=== PATIENT | male | born 1950 | race African-American/Black ===

== ENCOUNTER 2022-06-21 20:07 | Emergency (ER) | payer OTHER ==
--- NOTE | 2022-06-21 21:44 | RAD REPORT ---
EXAM DESCRIPTION: Tory Single View06/21/2022 9:39 pm CLINICAL HISTORY: Chest pain COMPARISON: 2010 FINDINGS: The lungs appear clear of acute infiltrate. The heart is normal size IMPRESSION: No acute abnormalities displayed
[2022-06-21 21:52] LABS: Absolute Lymphocytes (CBC) 1.2 K/uL (0.7-4.9); Lymphocytes % 15.8 % (15.3-44.8); MCV 88.2 fL (80-100); MPV 8.8 fL (7.6-11.3); RBC Red Blood Cell Count 4.99 M/uL (4.33-5.43)
[2022-06-21 22:13] LABS: Troponin High Sensitivity 6.1 pg/mL (<58.9)
--- NOTE | 2022-06-21 22:17 | EDPHYS ---
Physician Documentation [facility] Name: Dax Steven Sr Age: 72 yrs Sex: Male : 1950 Arrival Date: 06/21/2022 Time: 20:11 Bed 6 Private MD: ED Physician Tex Clark HPI: 06/21 20:30 This 72 yrs old Black Male presents to ER via Unassigned with complaints of chest pain. rn 20:30 The patient or guardian reports chest pain that is located primarily in the anterior rn chest wall, right. Onset: yesterday. The pain does not radiate. Associated signs and symptoms: Pertinent positives: None. Pertinent negatives: abdominal pain, cough, diaphoresis, dizziness, headache, lower extremity swelling, palpitations, recent travel, shortness of breath, syncope, vomiting. The chest pain is described as aching. Duration: The patient or guardian reports multiple episodes, that are intermittent. Modifying factors: The symptoms are alleviated by nothing. the symptoms are aggravated by movement, palpation of area. Severity of pain: At its worst the pain was mild in the emergency department the pain has resolved. The patient has not experienced similar symptoms in the past. The patient has not recently seen a physician. Pt reports right sided chest pain, intermittent since yesterday, worse with palpation and positioning/turning. No fever/cough/sob/abd pain/hemoptysis. No trauma. No vomiting/diarrhea. Does not feel ill. Reports "not really painful", enough to just notice it, and lasts for a second or so. Walks daily without chest pain, no chest pain with exertion.. Historical: - Allergies: 06/22 00:13 No Known Allergies; kd3 - Immunization history:: Adult Immunizations unknown. - Family history:: not pertinent. - Social history:: Smoking status: unknown. - Hospitalizations: : No recent hospitalization is reported. ROS: 06/21 20:30 Constitutional: Negative for fever, chills, and weight loss, Eyes: Negative for injury, rn pain, redness, and discharge, Neck: Negative for injury, pain, and swelling, Cardiovascular: Negative for palpitations, and edema, Respiratory: Negative for shortness of breath, cough, wheezing, and pleuritic chest pain, Abdomen/GI: Negative for abdominal pain, nausea, vomiting, diarrhea, and constipation, Back: Negative for injury and pain, : Negative for injury, bleeding, discharge, and swelling, MS/Extremity: Negative for injury and deformity, Skin: Negative for injury, rash, and discoloration, Neuro: Negative for headache, weakness, numbness, tingling, and seizure. Exam: 20:30 Constitutional: This is a well developed, well nourished patient who is awake, alert, rn and in no acute distress. Ambulatory to room without difficulty or assistance. Head/Face: Normocephalic, atraumatic. Cardiovascular: Regular rate and rhythm. No pulse deficits. Respiratory: No increased work of breathing, no retractions or nasal flaring. Abdomen/GI: Soft, non-tender Skin: Warm, dry MS/ Extremity: Pulses equal, no cyanosis. Neuro: Awake and alert, GCS 15 21:17 ECG was reviewed by the Attending Physician. rn Vital Signs: 20:34 BP 142 / 77; Pulse 96; Resp 18; Temp 98.1(TE); Pulse Ox 97% on R/A; Weight 98.88 kg; kl Height 6 ft. 2 in. (187.96 cm); Pain 3/10; 21:50 BP 132 / 79; Pulse 85; Resp 23 S; Pulse Ox 96% on R/A; as6 22:45 BP 134 / 90; Pulse 84; Resp 16; Pulse Ox 95% on R/A; em6 06/22 00:13 Pulse 78; Resp 16; Pulse Ox 95% on R/A; kd3 06/21 20:34 Body Mass Index 27.99 (98.88 kg, 187.96 cm) MDM: 06/21 20:14 Patient medically screened. rn 22:14 Differential diagnosis: acute myocardial infarction, acute pericarditis, anxiety, chest rn wall pain, costochondritis, esophagitis, pleurisy, pneumothorax, chest wall pain, muscular pain. Data reviewed: vital signs, nurses notes, lab test result(s), EKG, radiologic studies, plain films, and as a result, I will discharge patient. Counseling: I had a detailed discussion with the patient and/or guardian regarding: the historical points, exam findings, and any diagnostic results supporting the discharge/admit diagnosis, lab results, radiology results, the need for outpatient follow up, to return to the emergency department if symptoms worsen or persist or if there are any questions or concerns that arise at home. Special discussion: Based on the patient's history, exam, and Dx evaluation, there is no indication for emergent intervention or inpatient Tx. It is understood by the patient/guardian that if the Sx's persist or worsen they need to return immediately for re-evaluation. I discussed with the patient/guardian in detail that at this point there is no indication for admission to the hospital. It is understood, however, that if the symptoms persist or worsen the patient needs to return immediately for re-evaluation. Based on the history and exam findings, there is no indication for further emergent testing or inpatient evaluation. I discussed with the patient/guardian the need to see the kiln cleaner for further evaluation of the symptoms. I discussed with the patient/guardian the need to see the primary care provider for further evaluation of the symptoms. ED course: No acute findings in blood or CXR. NOrmal ECG. Chest pain worse with twisting and palpation, only for a second, normal trop. No oxygen requirement. Will dc home with return precautions. . 22:16 ED course: Recommend cardiology f/u for stress test. . rn 23:19 ED course: CT PE neg. Will dc home with recommendation to f/u with cardiology and pcp. rn Return precautions given as well. . 06/21 20:22 Order name: Basic Metabolic Panel; Complete Time: 22:13 rn 06/21 20:22 Order name: CBC with Diff; Complete Time: 21:53 rn 06/21 20:22 Order name: NT PRO-BNP; Complete Time: 22:13 rn 06/21 20:22 Order name: Troponin HS; Complete Time: 22:13 rn 06/21 20:22 Order name: XRAY Chest (1 view); Complete Time: 21:49 rn 06/21 22:20 Order name: CT Chest For PE Angio rn 06/21 20:22 Order name: EKG; Complete Time: 20:42 rn 06/21 20:22 Order name: Cardiac monitoring; Complete Time: 21:46 rn 06/21 20:22 Order name: EKG - Nurse/Tech; Complete Time: 21:46 rn 06/21 20:22 Order name: IV Saline Lock; Complete Time: 21:46 rn 06/21 20:22 Order name: Labs collected and sent; Complete Time: 21:46 rn 06/21 22:36 Order name: Chest For Pe Angio; Complete Time: 23:18 EDMS 06/21 20:22 Order name: O2 Per Protocol; Complete Time: :46 rn 06/21 20:22 Order name: O2 Sat Monitoring; Complete Time: 21:46 rn EC:17 Rate is 95 beats/min. Rhythm is regular. QRS [place] is Normal. IN interval is normal. QRS rn interval is normal. QT interval is normal. No Q waves. T waves are Normal. No ST changes noted. Clinical impression: Normal ECG. Interpreted by me. Reviewed by me. Administered Medications: 23:29 Drug: NS 0.9% 500 ml Route: IV; Rate: bolus; Site: right antecubital; em6 06/22 00:14 Follow up: IV Status: Completed infusion; IV Intake: 500ml kd3 06/21 23:29 Drug: Potassium Chloride 40 mEq Route: PO; em6 06/22 00:14 Follow up: Response: No adverse reaction kd3 Disposition Summary: 06/21/22 23:20 Discharge Ordered Location: Home(06/21/22 23:20) rn Problem: new(06/21/22 23:20) rn Symptoms: have improved(06/21/22 23:20) rn Condition: Stable(06/21/22 23:20) rn Diagnosis - Chest pain, unspecified(06/21/22 23:20) rn - Hypokalemia(06/21/22 23:20) rn - Dehydration(06/21/22 23:20) rn Followup: rn - With: Private Physician - When: As needed - Reason: Recheck today's complaints, Re-evaluation by your physician Discharge Instructions: - Discharge Summary Sheet rn - Nonspecific Chest Pain, Adult rn - Dehydration, Adult rn - Hypokalemia rn Forms: - Medication Reconciliation Form rn - Thank You Letter rn - Antibiotic broomcorn scraper - Prescription Opioid Use rn Signatures: Dispatcher [employer] EDOH Tex Clark MD MD rn Doucette, Kyli, RN RN [email or web address] Lolis Paulino, RN RN em6 Corrections: (The following items were deleted from the chart) 06/21 22:19 22:16 Home rn rn 22:19 22:16 new rn rn 22:19 22:16 have improved rn rn 22:19 22:16 Stable rn rn 22:19 22:16 Chest pain, unspecified rn rn : 22:16 Dehydration rn rn : 22:16 Hypokalemia rn rn
--- NOTE | 2022-06-21 22:17 | ER ---
Nurse's Notes [facility] Name: Dax Steven Sr Age: 72 yrs Sex: Male : 1950 Arrival Date: 06/21/2022 Time: 20:11 Bed 6 Private MD: Diagnosis: Chest pain, unspecified;Hypokalemia;Dehydration Presentation: 06/21 20:34 Chief complaint: Patient states: chest discomfort when turning since yesterday. Ebola kl Screen: Patient negative for fever greater than or equal to 101.5 degrees Fahrenheit, and additional compatible Ebola Virus Disease symptoms. Initial Sepsis Screen: Does the patient meet any 2 criteria? No. Patient's initial sepsis screen is negative. Does the patient have a suspected source of infection? No. Patient's initial sepsis screen is negative. Risk Assessment: Do you want to hurt yourself or someone else? Patient reports no desire to harm self or others. Onset of symptoms was June 20, 2022. 20:34 Method Of Arrival: Ambulatory kl 20:34 Acuity: VA 3 kl 20:36 Note pt denies pain at time of triage. kl 23:33 Coronavirus screen: At this time, the client does not indicate any symptoms associated em6 with coronavirus-19. Triage Assessment: 20:36 General: Appears in no apparent distress. comfortable, Behavior is calm, cooperative. kl Pain: Denies pain. Cardiovascular: No deficits noted. Historical: - Allergies: 06/22 00:13 No Known Allergies; kd3 - Immunization history:: Adult Immunizations unknown. - Family history:: not pertinent. - Social history:: Smoking status: unknown. - Hospitalizations: : No recent hospitalization is reported. Screenin/18 21:51 Abuse screen: Denies threats or abuse. Denies injuries from another. Nutritional as6 screening: No deficits noted. Tuberculosis screening: No symptoms or risk factors identified. Fall Risk None identified. Assessment: 21:47 General: Appears in no apparent distress. Behavior is calm, cooperative. Pain: as6 Complains of pain in chest Aggravated by increased activity. Neuro: Level of Consciousness is awake, alert. Cardiovascular: Reports chest pain, Denies shortness of breath. Respiratory: Respiratory effort is even, unlabored. 23:30 Reassessment: waiting for 500 mL of fluids to finish to discharge patient. em6 23:31 Reassessment:. Neuro: Level of Consciousness is awake, alert, obeys commands, Oriented em6 to person, place, time, situation. Respiratory: Airway is patent Respiratory effort is even, unlabored, Respiratory pattern is regular, symmetrical. Vital Signs: 20:34 BP 142 / 77; Pulse 96; Resp 18; Temp 98.1(TE); Pulse Ox 97% on R/A; Weight 98.88 kg; Height 6 ft. 2 in. (187.96 cm); Pain 3/10; 21:50 BP 132 / 79; Pulse 85; Resp 23 S; Pulse Ox 96% on R/A; as6 22:45 BP 134 / 90; Pulse 84; Resp 16; Pulse Ox 95% on R/A; em6 06/22 00:13 Pulse 78; Resp 16; Pulse Ox 95% on R/A; kd3 06/21 20:34 Body Mass Index 27.99 (98.88 kg, 187.96 cm) ED Course: 06/21 20:11 Patient arrived in ED. jj6 20:14 Tex Clark MD is Attending Physician. rn 20:36 Triage completed. 20:52 Kael Whitney, CAROL is Primary Nurse. as6 21:29 Arm band placed on. as6 21:41 XRAY Chest (1 view) In Process Unspecified. EDMS 21:46 Basic Metabolic Panel Sent. as6 21:46 CBC with Diff Sent. as6 21:46 NT PRO-BNP Sent. as6 21:46 Troponin HS Sent. as6 21:46 Inserted saline lock: 20 gauge in right antecubital area, using aseptic technique. as6 Blood collected. 21:51 Placed in gown. Bed in low position. Call light in reach. Side rails up X2. as6 23:01 Chest For Pe Angio In Process Unspecified. EDMS 10 00:13 No provider procedures requiring assistance completed. IV discontinued, intact, kd3 bleeding controlled, No redness/swelling at site. Pressure dressing applied. Administered Medications: 06/21 23:29 Drug: NS 0.9% 500 ml Route: IV; Rate: bolus; Site: right antecubital; em6 06/22 00:14 Follow up: IV Status: Completed infusion; IV Intake: 500ml kd3 06/21 23:29 Drug: Potassium Chloride 40 mEq Route: PO; em6 06/22 00:14 Follow up: Response: No adverse reaction kd3 Medication: 00:13 VIS not applicable for this client. kd3 Intake: 00:14 IV: 500ml; Total: 500ml. kd3 Outcome: 06/21 22:16 Discharge ordered by . rn 23:20 Discharge ordered by MD. rn 06/22 00:13 Discharged to home ambulatory, with family. kd3 Condition: stable Discharge instructions given to patient, family, Instructed on discharge instructions, follow up and referral plans. Demonstrated understanding of instructions, follow-up care. 00:14 Patient left the ED. kd3 Signatures: Dispatcher [employer] EDMS Aleena Branch RN Tex Becerra MD MD rn Jeffries, Jennifer jj6 Slawson, Ashby, RN RN as6 Chata Oneil RN RN kd3 Lolis Paulino RN RN em6
--- NOTE | 2022-06-21 23:10 | RAD REPORT ---
EXAM DESCRIPTION: CT - Chest For Pe Angio - 06/21/2022 11:00 pm CLINICAL HISTORY: Chest pain COMPARISON: None. TECHNIQUE: Dynamically enhanced axial 3 mm thick images of the chest were obtained during administra tion of <100> mL Isovue 370 IV contrast. Coronal and oblique reconstruction images were generated and reviewed. Exam utilizes a protocol for optimal evaluation of pulmonary arterial tree. Maximum intensity projections 3D imaging was utilized All CT scans are performed using dose optimization technique as appropriate and may include automated exposure control or mA/KV adjustment according to patient size. FINDINGS: A pulmonary embolus is not seen. A thoracic aortic aneurysm is not noted. A pleural effusion is not seen. A pericardial effusion is not seen. A lung consolidation is not present. Fatty liver IMPRESSION: Negative for a pulmonary embolism.
[2022-06-21] MEDS ORDERED: POTASSIUM CL SA 10 MEQ TAB PO ONE (23:23)
[2022-06-21] MEDS ORDERED: NA CHLORIDE 0.9% 500 ML ONE (23:23)
[2022-06-22 01:29] VITALS: TEMP 98.1
[2022-06-22 01:31] VITALS: BP 134/90; O2SAT 95
--- NOTE | 2022-06-23 16:18 | EKG ---
Test Date: 2022-06-21 Test Time: 20:44:18 Field Staff Manager: PATRIA MEASUREMENT RESULTS: Intervals: Rate: 95 IL: 150 QRSD: 80 QT: 344 QTc: 432 [place]: P: 59 IL: 150 QRS: 5 T: 18 INTERPRETIVE STATEMENTS: Normal sinus rhythm Normal ECG Compared to ECG 02/26/2011 06:26:59 Sinus bradycardia no longer present ST (T wave) deviation no longer present Electronically Signed On 06-23-22 16:15:49 CDT by Keenan Figueroa
== END 2022-06-22 00:14 | disposition home or self-care (01) ==
LOC: ER 20:07
DX: R07.89 Other chest pain (principal); E87.6 Hypokalemia; E86.0 Dehydration
CPT/HCPCS: 93005; 85025; 80048; 36415; 84484; 83880; 71275; 71045; 96360; 99284; Q9967; J7040

== ENCOUNTER 2022-10-08 08:11 | Emergency (ER) | payer OTHER ==
[2022-10-08] MEDS ORDERED: NA CHLORIDE 0.9% 1,000 ML ONE (08:40)
[2022-10-08 09:06] LABS: Absolute Lymphocytes (CBC) 1.4 K/uL (0.7-4.9); MCV 88.7 fL (80-100); MPV 9.4 fL (7.6-11.3); RBC Red Blood Cell Count 5.19 M/uL (4.33-5.43)
[2022-10-08 10:33] LABS: Urine Blood Negative (Negative); Urine Glucose Negative (Negative); Urine Protein Negative (Negative); Urine Specific Gravity 1.015 (1.005-1.030); Urine pH 7.5 (5.0-7.0)
[2022-10-08 11:49] LABS: ALT/SGPT 29 U/L (16-61); AST/SGOT 19 U/L (15-37); Albumin 3.6 g/dL (3.4-5.0); Alkaline Phosphatase 73 U/L (45-117); BUN Blood Urea Nitrogen 9 mg/dL (7-18); Bicarbonate 31 mmol/L (21-32); Glomerular Filtration Rate 74 ml/min (=/>90); Glucose Level 187 mg/dL (74-106); Protein, Total 6.7 g/dL (6.4-8.2); Sodium Level 136 mmol/L (136-145)
[2022-10-08] MEDS ORDERED: POTASSIUM CL SA 10 MEQ TAB PO ONE (12:16)
--- NOTE | 2022-10-08 12:41 | ER ---
Nurse's Notes [facility] Name: Dax Steven Sr Age: 72 yrs Sex: Male : 1950 Arrival Date: 10/08/2022 Time: 08:15 Bed 13 Private MD: Evelyn Heard H Diagnosis: Gynecomastia;Hyperglycemia;Hypokalemia Presentation: 10/08 08:21 Chief complaint: Patient states: mt BP and blood sugar has been running high for past iw week, also noticed his right breast is larger than the left X 1 week. Coronavirus screen: At this time, the client does not indicate any symptoms associated with coronavirus-19. Ebola Screen: Patient negative for fever greater than or equal to 101.5 degrees Fahrenheit, and additional compatible Ebola Virus Disease symptoms Patient denies exposure to infectious person. Patient denies travel to an Ebola-affected area in the 21 days before illness onset. No symptoms or risks identified at this time. Onset of symptoms was September 30, 2022. 08:21 Method Of Arrival: Ambulatory iw 08:21 Acuity: VA 3 iw 09:10 Initial Sepsis Screen: Does the patient meet any 2 criteria? No. Patient's initial kc6 sepsis screen is negative. Does the patient have a suspected source of infection? No. Patient's initial sepsis screen is negative. Risk Assessment: Do you want to hurt yourself or someone else? Patient reports no desire to harm self or others. Historical: - Allergies: 08:22 No Known Allergies; iw - Home Meds: 08:26 indapamide 2.5 mg oral tab 1 tab once daily [Active]; glimepiride 4 mg Oral tab 1 tab iw once daily [Active]; pantoprazole 40 mg oral TbEC 1 tab once daily [Active]; atorvastatin 10 mg oral tab 1 tab once daily [Active]; allopurinol 300 mg Oral tab 1 tab once daily [Active]; potassium gluconate 595 mg (99 mg) oral tab daily [Active]; - Immunization history:: Client reports receiving the 2nd dose of the Covid vaccine, Flu vaccine is up to date. - Social history:: Smoking status: Patient denies any tobacco usage or history of. Screenin:09 [facility] ED Fall Risk Assessment (Adult) History of falling in the last 3 months, kc6 including since admission No falls in past 3 months (0 pts) Confusion or Disorientation No (0 pts) Intoxicated or Sedated No (0 pts) Impaired Gait No (0 pts) Mobility Assist Device Used No (0 pt) Altered Elimination No (0 pt) Score/Fall Risk Level 0 - 2 = Low Risk Oriented to surroundings, Maintained a safe environment, Educated pt \T\ family on fall prevention, incl call for assistance when getting out of bed, Assessed \T\ reinforced patient's understanding of fall precautions, Hourly rounding (assess needs \T\ fall precautionary measures) done. Abuse screen: Denies threats or abuse. Denies injuries from another. Nutritional screening: No deficits noted. Tuberculosis screening: No symptoms or risk factors identified. Assessment: 08:52 General: Appears in no apparent distress. comfortable, Behavior is calm, cooperative, kc6 appropriate for age. Pain: Denies pain. Neuro: [place] Agitation-Sedation Scale (RASS): 0 - Alert and Calm Level of Consciousness is awake, alert, obeys commands, Oriented to person, place, time, situation, Appropriate for age. Cardiovascular: Capillary refill < 3 seconds. Respiratory: Airway is patent Trachea midline Respiratory effort is even, unlabored, Respiratory pattern is regular, symmetrical. GI: No signs and/or symptoms were reported involving the gastrointestinal system. : No signs and/or symptoms were reported regarding the genitourinary system. EENT: No signs and/or symptoms were reported regarding the EENT system. Derm: No signs and/or symptoms reported regarding the dermatologic system. Skin is intact, Skin is pink, warm \T\ dry. Musculoskeletal: No signs and/or symptoms reported regarding the musculoskeletal system. Circulation, motion, and sensation intact. Capillary refill < 3 seconds, Range of motion: intact in all extremities. 09:52 Reassessment: Patient appears in no apparent distress at this time. No changes from kc6 previously documented assessment. Patient and/or family updated on plan of care and expected duration. Pain level reassessed. Patient is alert, oriented x 3, equal unlabored respirations, skin warm/dry/pink. 10:52 Reassessment: Patient appears in no apparent distress at this time. No changes from kc6 previously documented assessment. Patient and/or family updated on plan of care and expected duration. Pain level reassessed. Patient is alert, oriented x 3, equal unlabored respirations, skin warm/dry/pink. 11:51 Reassessment: Patient appears in no apparent distress at this time. No changes from kc6 previously documented assessment. Patient and/or family updated on plan of care and expected duration. Pain level reassessed. Patient is alert, oriented x 3, equal unlabored respirations, skin warm/dry/pink. 12:51 Reassessment: Patient appears in no apparent distress at this time. No changes from kc6 previously documented assessment. Patient and/or family updated on plan of care and expected duration. Pain level reassessed. Patient is alert, oriented x 3, equal unlabored respirations, skin warm/dry/pink. Vital Signs: 08:22 BP 145 / 88; Pulse 117; Resp 18; Temp 97.0; Pulse Ox 98% on R/A; Weight 98.88 kg; iw Height 6 ft. 2 in. (187.96 cm); 08:30 BP 140 / 85; Pulse 102; Resp 22; Pulse Ox 97% on R/A; vg1 09:30 BP 111 / 75; Pulse 80; Resp 22 S; Pulse Ox 92% on R/A; kc6 10:30 BP 122 / 79; Pulse 84; Resp 19 S; Pulse Ox 93% on R/A; kc6 11:52 BP 119 / 83; Pulse 75; Resp 18 S; Pulse Ox 92% on R/A; kc6 13:15 BP 114 / 69; Pulse 72; Resp 14 S; Pulse Ox 91% on R/A; kc6 08:22 Body Mass Index 27.99 (98.88 kg, 187.96 cm) ED Course: 08:15 Patient arrived in ED. as 08:16 Evelyn Heard DO is Private Physician. as 08:17 Jaden Whalen PA is PHCP. jmm 08:17 Tex Clark MD is Attending Physician. jmm 08:17 Tex Clark MD is Attending Physician. jmm 08:17 Jaden Whalen PA is PHCP. jmm 08:22 Triage completed. iw 08:29 Diana Vega, CAROL is Primary Nurse. kc6 08:52 CMP Sent. kc6 08:52 CBC with Diff Sent. kc6 08:52 Inserted saline lock: 20 gauge in left antecubital area, using aseptic technique. Blood kc6 collected. 09:09 Arm band placed on. kc6 09:10 Patient has correct armband on for positive identification. Placed in gown. Bed in low kc6 position. Call light in reach. Side rails up X 1. Adult w/ patient. 12:38 Eevlyn Heard DO is Referral Physician. lui 13:14 No provider procedures requiring assistance completed. IV discontinued, intact, kc6 bleeding controlled, No redness/swelling at site. Pressure dressing applied. Administered Medications: 08:52 Drug: NS 0.9% 1000 ml Route: IV; Rate: 1000 ml; Site: left antecubital; kc6 13:16 Follow up: Response: No adverse reaction; IV Status: Completed infusion; IV Intake: kc6 1000ml 12:17 Drug: Potassium Chloride 40 mEq Route: PO; kr3 13:16 Follow up: Response: No adverse reaction kc6 Medication: 13:15 VIS not applicable for this client. kc6 Intake: 13:16 IV: 1000ml; Total: 1000ml. kc6 Outcome: 12:40 Discharge ordered by MD. sana 13:14 Discharged to home ambulatory, with significant other. kc6 13:14 Condition: stable 13:14 Discharge instructions given to patient, significant other, Instructed on discharge instructions, follow up and referral plans. Demonstrated understanding of instructions, follow-up care. 13:16 Patient left the ED. kc6 Signatures: Jaden Whalen PA PA jmm Martinez, Amelia as Williams, Irene, RN RN iw Garcia, Victoria RN RN vg1 Rafaela Raymond RN RN kr3 Diana Vega, CAROL RN kc6 Corrections: (The following items were deleted from the chart) 10:39 09:30 BP 111 / 75; Pulse 80bpm; Resp 10bpm; Spontaneous; Pulse Ox 92% RA; kc6 kc6
--- NOTE | 2022-10-08 12:41 | EDPHYS ---
Physician Documentation [facility] Name: Dax Steven Sr Age: 72 yrs Sex: Male : 1950 Arrival Date: 10/08/2022 Time: 08:15 Bed 13 Private MD: Evelyn Heard H ED Physician Tex Clark HPI: 10/08 09:07 This 72 yrs old Black Male presents to ER via Ambulatory with complaints of High Blood jmm Pressure, Breast Problem - swelling. 09:07 Onset: The symptoms/episode began/occurred gradually. This is a 72 year old male that jmm presents to the ED with complaints of right sided breast enlargement. patient attributes this to lifting a heavy battery. Also stated his BGL and bp are elevated. Denies chest pain, fever, sob. . Historical: - Allergies: 08:22 No Known Allergies; iw - Home Meds: 08:26 indapamide 2.5 mg oral tab 1 tab once daily [Active]; glimepiride 4 mg Oral tab 1 tab iw once daily [Active]; pantoprazole 40 mg oral TbEC 1 tab once daily [Active]; atorvastatin 10 mg oral tab 1 tab once daily [Active]; allopurinol 300 mg Oral tab 1 tab once daily [Active]; potassium gluconate 595 mg (99 mg) oral tab daily [Active]; - Immunization history:: Client reports receiving the 2nd dose of the Covid vaccine, Flu vaccine is up to date. - Social history:: Smoking status: Patient denies any tobacco usage or history of. ROS: 09:07 Constitutional: Negative for fever, chills, and weight loss, Cardiovascular: Negative jmm for chest pain, palpitations, and edema, Respiratory: Negative for shortness of breath, cough, wheezing, and pleuritic chest pain, Abdomen/GI: Negative for abdominal pain, nausea, vomiting, diarrhea, and constipation. 09:07 All other systems are negative. Exam: 09:07 Constitutional: This is a well developed, well nourished patient who is awake, alert, jmm and in no acute distress. Head/Face: atraumatic. Eyes: EOMI, no conjunctival erythema appreciated ENT: Moist Mucus Membranes Neck: Trachea midline, Supple Vital Signs: 08:22 BP 145 / 88; Pulse 117; Resp 18; Temp 97.0; Pulse Ox 98% on R/A; Weight 98.88 kg; iw Height 6 ft. 2 in. (187.96 cm); 08:30 BP 140 / 85; Pulse 102; Resp 22; Pulse Ox 97% on R/A; vg1 09:30 BP 111 / 75; Pulse 80; Resp 22 S; Pulse Ox 92% on R/A; kc6 10:30 BP 122 / 79; Pulse 84; Resp 19 S; Pulse Ox 93% on R/A; kc6 11:52 BP 119 / 83; Pulse 75; Resp 18 S; Pulse Ox 92% on R/A; kc6 13:15 BP 114 / 69; Pulse 72; Resp 14 S; Pulse Ox 91% on R/A; kc6 08:22 Body Mass Index 27.99 (98.88 kg, 187.96 cm) iw MDM: 08:29 Patient medically screened. [facility] 12:36 Data reviewed: vital signs, nurses notes, lab test result(s). Test considered but Not jm performed: CT: no pain. Counseling: I had a detailed discussion with the patient and/or guardian regarding: the historical points, exam findings, and any diagnostic results supporting the discharge/admit diagnosis, lab results, the need for outpatient follow up, to return to the emergency department if symptoms worsen or persist or if there are any questions or concerns that arise at home. ED course: Patient is alert and non toxic in appearance in the ED. Patiet advised to follow up with pcp and otherwise given strict return precautions. patient understood and agrees with the plan of care. . 10/08 08:33 Order name: CBC with Diff; Complete Time: 09:20 [facility] 10/08 08:33 Order name: CMP; Complete Time: 12:19 [facility] 10/08 08:33 Order name: Ketone, Serum; Complete Time: 12:19 [facility] 10/08 08:50 Order name: Glucose, Ancillary Testing; Complete Time: 09:01 [facility] 10/08 10:34 Order name: Urine Dipstick-Ancillary; Complete Time: 10:42 [facility] 10/08 08:33 Order name: Saline Lock; Complete Time: 08:52 [facility] 10/08 08:33 Order name: Urine Dipstick-Ancillary (obtain specimen); Complete Time: 10:34 [facility] 10/08 09:14 Order name: Labs - recollect needed: green top; Complete Time: 10:04 iw Administered Medications: 08:52 Drug: NS 0.9% 1000 ml Route: IV; Rate: 1000 ml; Site: left antecubital; kc6 13:16 Follow up: Response: No adverse reaction; IV Status: Completed infusion; IV Intake: kc6 1000ml 12:17 Drug: Potassium Chloride 40 mEq Route: PO; kr3 13:16 Follow up: Response: No adverse reaction kc6 Disposition: 15:20 Co-signature as Attending Physician, Tex Clark MD I reviewed the patient's care rn provided by the Advanced Practice Provider and agree with the diagnosis and treatment plan. Disposition Summary: 10/08/22 12:40 Discharge Ordered Location: Home [facility] Condition: Stable jmm Diagnosis - Gynecomastia jmm - Hyperglycemia jmm - Hypokalemia jmm Followup: jmm - With: Evelyn Heard, DO - When: 2 - 3 days - Reason: Recheck today's complaints, Continuance of care, Re-evaluation by your physician Discharge Instructions: - Discharge Summary Sheet jmm - Potassium Content of Foods jmm - Hyperglycemia jmm - Gynecomastia, Adult jmm Forms: - Medication Reconciliation Form jmm - Thank You Letter jmm - Antibiotic Education jmm - Prescription Opioid Use jm Signatures: Dispatcher [employer] Jaden Lopes PA PA jmm Jyoti Gibbs, RN Tex Bazzi MD MD rn Reid, Kelley, RN RN kr3 Diana Vega RN RN kc6
[2022-10-08 13:50] VITALS: TEMP 97
[2022-10-08 14:17] VITALS: BP 114/69; O2SAT 91
== END 2022-10-08 13:16 | disposition home or self-care (01) ==
LOC: ER 08:11
DX: N62 Hypertrophy of breast (principal); R73.9 Hyperglycemia, unspecified; E87.6 Hypokalemia
CPT/HCPCS: 96361; 85025; 36415; 82010; 82947; 81003; 80053; 96360; 99284; J7030

== ENCOUNTER 2023-03-01 10:27 | Emergency (ER) | payer OTHER ==
[2023-03-01] MEDS ORDERED: NA CHLORIDE 0.9% 1,000 ML ONE (11:21)
--- NOTE | 2023-03-01 11:45 | RAD REPORT ---
EXAM DESCRIPTION: Tory Single View03/01/2023 11:14 am CLINICAL HISTORY: Fatigue COMPARISON: 2021 FINDINGS: The lungs appear clear of acute infiltrate. The heart is normal size IMPRESSION: No acute abnormalities displayed
[2023-03-01 11:55] LABS: Absolute Lymphocytes (CBC) 1.2 K/uL (0.7-4.9); Hematocrit 45.3 % (39.6-49.0); Lymphocytes % 19.1 % (15.3-44.8); MCV 87.6 fL (80-100); RBC Red Blood Cell Count 5.17 M/uL (4.33-5.43)
[2023-03-01 12:23] LABS: Albumin 3.8 g/dL (3.4-5.0); Bilirubin Direct 0.3 mg/dL (0-0.2); Bilirubin Indirect, Calculated 0.8 mg/dL (0.2-0.8); Bilirubin Total 1.1 mg/dL (0.2-1.0); Magnesium 1.9 mg/dL (1.6-2.4); Potassium 2.9 mEq/L (3.5-5.1); Protein, Total 7.4 g/dL (6.4-8.2); Thyroid Stimulating Hormone 1.32 uIU/mL (0.358-3.740); Troponin High Sensitivity 5.5 pg/mL (<58.9)
[2023-03-01 12:24] LABS: Specific Gravity 1.019 (1.005-1.030); Urine Bacteria None Seen /HPF (<20); Urine Bilirubin NEGATIVE (Negative); Urine Blood Negative (Negative); Urine Clarity Clear (Clear); Urine Color Light-Yellow (Yellow); Urine Glucose 3+ (Negative); Urine Protein TRACE (Negative); Urine RBC <5 /HPF (None Seen); Urine Urobilinogen Normal (Normal); Urine pH 7.5 (5.0-7.0)
--- NOTE | 2023-03-01 12:42 | EDPHYS ---
Physician Documentation [facility] Name: Dax Steven Sr Age: 72 yrs Sex: Male : 1950 Arrival Date: 03/01/2023 Time: 10:27 Bed 19 Private MD: Evelyn Heard H ED Physician Rosalio Cordero HPI: 03/01 12:06 This 72 yrs old Black Male presents to ER via Ambulatory with complaints of Doesn't rt Feel Right. 12:06 Patient presents to the ED with feelings of not feeling well for the past several days, rt possible 2-month. Patient reports that fatigue but denies other concrete symptoms. Patient does state that he has had a right-sided breast swelling for the past month but denies other symptoms at this time. Denies any pain, nausea, vomiting. Denies other acute complaints. Symptoms are moderate severity, no other aggravating alleviating factors. Historical: - Allergies: 10:38 No Known Allergies; ld1 - Home Meds: 10:38 allopurinol 300 mg Oral tab 1 tab once daily [Active]; glimepiride 4 mg Oral tab 1 tab ld1 once daily [Active]; pantoprazole 40 mg Oral TbEC 1 tab once daily [Active]; atorvastatin 10 mg Oral tab 1 tab once daily [Active]; potassium gluconate 595 mg (99 mg) Oral tab daily [Active]; indapamide 2.5 mg Oral tab 1 tab once daily [Active]; - PMHx: 10:38 Hypercholesterolemia; Diabetes mellitus; Gout; Hypertensive disorder; ld1 - PSHx: 10:38 None; ld1 - Immunization history:: Adult Immunizations up to date, Client reports receiving the 2nd dose of the Covid vaccine. - Social history:: Smoking status: Patient denies any tobacco usage or history of. Patient/guardian denies using alcohol. - Family history:: not pertinent. ROS: 12:06 Cardiovascular: Negative for chest pain, palpitations, and edema, Respiratory: Negative rt for shortness of breath, cough, wheezing, and pleuritic chest pain, Abdomen/GI: Negative for abdominal pain, nausea, vomiting, diarrhea, and constipation, MS/Extremity: Negative for injury and deformity, Skin: Negative for injury, rash, and discoloration, Neuro: Negative for headache, weakness, numbness, tingling, and seizure, Psych: Negative for depression, anxiety, suicide ideation, homicidal ideation, and hallucinations. 12:06 Constitutional: Positive for fatigue, Negative for body aches, fever. Exam: 12:06 Constitutional: This is a well developed, well nourished patient who is awake, alert, rt and in no acute distress. Head/Face: Normocephalic, atraumatic. Neck: Trachea midline, no thyromegaly or masses palpated, and no cervical lymphadenopathy. Supple, full range of motion without nuchal rigidity, or vertebral point tenderness. No Meningismus. Cardiovascular: Regular rate and rhythm with a normal S1 and S2. No gallops, murmurs, or rubs. Normal PMI, no JVD. No pulse deficits. Respiratory: Lungs have equal breath sounds bilaterally, clear to auscultation and percussion. No rales, rhonchi or wheezes noted. No increased work of breathing, no retractions or nasal flaring. Abdomen/GI: Soft, non-tender, with normal bowel sounds. No distension or tympany. No guarding or rebound. No evidence of tenderness throughout. Skin: Warm, dry with normal turgor. Normal color with no rashes, no lesions, and no evidence of cellulitis. MS/ Extremity: Pulses equal, no cyanosis. Neurovascular intact. Full, normal range of motion. Neuro: Awake and alert, GCS 15, oriented to person, place, time, and situation. Cranial nerves II-XII grossly intact. Motor strength 5/5 in all extremities. Sensory grossly intact. Cerebellar exam normal. Normal gait. Psych: Awake, alert, with orientation to person, place and time. Behavior, mood, and affect are within normal limits. 12:06 Chest/axilla: Bilateral gynecomastia noted, the right is not appreciably larger to the left on my examination, no tenderness, no abscess, no overlying skin change. 12:06 ECG was reviewed by the Attending Physician. Vital Signs: 10:38 BP 150 / 89; Pulse 110; Resp 18; Temp 97.5(TE); Pulse Ox 97% on R/A; Weight 97.52 kg; ld1 Height 6 ft. 2 in. ; Pain 0/10; 11:30 BP 145 / 88; Pulse 102; Resp 23; Pulse Ox 95% on R/A; eh3 12:30 BP 133 / 79; Pulse 90; Resp 20; Pulse Ox 96% on R/A; eh3 10:38 Body Mass Index 27.60 (97.52 kg, 187.96 cm) ld1 10:38 Pain Scale: Adult ld1 MDM: 10:44 Patient medically screened. rt 13:02 Differential Diagnosis Electrolyte disturbance, anemia, dysrhythmia. Data reviewed: rt vital signs, nurses notes, old medical records, lab test result(s), EKG, radiologic studies. I considered the following discharge prescriptions or medication management in the emergency department Medications were administered in the Emergency Department. See MAR. Test considered but Not performed: CT: No pain to breast, CT or ultrasound are not indicated.. Care significantly affected by the following chronic conditions: Diabetes. Counseling: I had a detailed discussion with the patient and/or guardian regarding: the historical points, exam findings, and any diagnostic results supporting the discharge/admit diagnosis, lab results, radiology results, the need for outpatient follow up. 03/01 10:53 Order name: Basic Metabolic Panel; Complete Time: 12:26 rt 03/01 10:53 Order name: CBC with Diff; Complete Time: 12: rt 03/01 10:53 Order name: LFT's; Complete Time: 12: rt 03/01 10:53 Order name: Magnesium; Complete Time: 12: rt 03/01 10:53 Order name: NT PRO-BNP; Complete Time: 12: rt 03/01 10:53 Order name: Troponin HS; Complete Time: 12:03/01 10:53 Order name: TSH; Complete Time: 12: rt 03/01 10:53 Order name: UAM; Complete Time: 12:26 rt 03/01 10:53 Order name: CPK; Complete Time: 12:26 rt 03/01 10:53 Order name: XRAY Chest (1 view); Complete Time: 11:53 rt 03/01 10:53 Order name: EKG; Complete Time: 10:53 rt 03/01 10:53 Order name: Cardiac monitoring; Complete Time: 11:43 03/01 10:53 Order name: EKG - Nurse/Tech; Complete Time: 11:31 rt 03/01 10:53 Order name: IV Saline Lock; Complete Time: 11:43 rt 03/01 10:53 Order name: Labs collected and sent; Complete Time: : rt 03/01 10:53 Order name: O2 Per Protocol; Complete Time: rt 03/01 10:53 Order name: O2 Sat Monitoring; Complete Time: rt EC:06 Rate is 98 beats/min. Rhythm is regular, Normal Sinus Rhythm with No ectopy. QRS [place] rt is Normal. AL interval is normal. QRS interval is normal. QT interval is normal. No Q waves. T waves are Normal. No ST changes noted. Interpreted by me. Administered Medications: : Drug: NS 0.9% IV 1000 ml Route: IV; Rate: 1 bolus; Site: right antecubital; [facility] 13:26 Follow up: IV Status: Completed infusion; IV Intake: 1000ml [facility] 13:11 Drug: Potassium Chloride PO 40 mEq Route: PO; [facility] 13:26 Follow up: Response: No adverse reaction [facility] Disposition Summary: 03/01/23 12:42 Discharge Ordered Location: Home rt Problem: new rt Symptoms: have improved rt Condition: Stable rt Diagnosis - Hypokalemia rt - Gynecomastia rt Followup: rt - With: Evelyn Heard DO - When: 5 - 6 days - Reason: Discharge Instructions: - Discharge Summary Sheet rt - Hypokalemia rt - Gynecomastia, Adult rt Forms: - Medication Reconciliation Form rt - Thank You Letter rt - Antibiotic Education rt - Prescription Opioid Use rt - [employer]_Portal_[email or web address].htm rt Prescriptions: - potassium chloride 20 mEq Oral tablet, extended release - take 1 tablet by ORAL route daily; 30 tablet; Refills: 0, Product Selection rt Permitted Signatures: Dispatcher [employer] EDDianne Navas RN RN ld1 Treva Swain RN RN eh3 Rosalio Cordero MD MD rt
--- NOTE | 2023-03-01 12:42 | ER ---
Nurse's Notes [facility] Name: Dax Steven Sr Age: 72 yrs Sex: Male : 1950 Arrival Date: 03/01/2023 Time: 10:27 Bed 19 Private MD: Evelyn Heard H Diagnosis: Hypokalemia;Gynecomastia Presentation: 03/01 10:37 Chief complaint: Patient states: "I feel like something is wrong, I am not feeling as ld1 well as I usually do. Fatigue. I noticed 1 month ago my right breast is swollen." Pt denies pain. Coronavirus screen: At this time, the client does not indicate any symptoms associated with coronavirus-19. Ebola Screen: No symptoms or risks identified at this time. Risk Assessment: Do you want to hurt yourself or someone else? Patient reports no desire to harm self or others. Onset of symptoms was March 01, 2023. 10:37 Method Of Arrival: Ambulatory ld1 10:37 Acuity: [facility] 3 ld1 10:45 Initial Sepsis Screen: Does the patient meet any 2 criteria? No. Patient's initial eh3 sepsis screen is negative. Does the patient have a suspected source of infection? No. Patient's initial sepsis screen is negative. Triage Assessment: 10:38 General: Appears in no apparent distress. comfortable, Behavior is calm, cooperative, ld1 appropriate for age. Pain: Denies pain. EENT: No signs and/or symptoms were reported regarding the EENT system. Neuro: Level of Consciousness is awake, alert, obeys commands, Oriented to person, place, time, situation. Cardiovascular: Capillary refill < 3 seconds Patient's skin is warm and dry. Respiratory: Airway is patent Respiratory effort is even, unlabored. GI: Abdomen is flat, non-distended. : No signs and/or symptoms were reported regarding the genitourinary system. Derm: No signs and/or symptoms reported regarding the dermatologic system. Musculoskeletal: No signs and/or symptoms reported regarding the musculoskeletal system. Historical: - Allergies: 10:38 No Known Allergies; ld1 - Home Meds: 10:38 allopurinol 300 mg Oral tab 1 tab once daily [Active]; glimepiride 4 mg Oral tab 1 tab ld1 once daily [Active]; pantoprazole 40 mg Oral TbEC 1 tab once daily [Active]; atorvastatin 10 mg Oral tab 1 tab once daily [Active]; potassium gluconate 595 mg (99 mg) Oral tab daily [Active]; indapamide 2.5 mg Oral tab 1 tab once daily [Active]; - PMHx: 10:38 Hypercholesterolemia; Diabetes mellitus; Gout; Hypertensive disorder; ld1 - PSHx: 10:38 None; ld1 - Immunization history:: Adult Immunizations up to date, Client reports receiving the 2nd dose of the Covid vaccine. - Social history:: Smoking status: Patient denies any tobacco usage or history of. Patient/guardian denies using alcohol. - Family history:: not pertinent. Screenin:[address] [facility] ED Fall Risk Assessment (Adult) Score/Fall Risk Level 0 - 2 = Low Risk. Abuse eh3 screen: Denies threats or abuse. Denies injuries from another. Nutritional screening: No deficits noted. Tuberculosis screening: No symptoms or risk factors identified. Assessment: 10:45 General: Appears in no apparent distress. uncomfortable, Behavior is calm, cooperative, eh3 appropriate for age. Pain: Denies pain. Neuro: Level of Consciousness is awake, alert, obeys commands, Oriented to person, place, time, situation. Cardiovascular: Capillary refill < 3 seconds Patient's skin is warm and dry. Respiratory: Airway is patent Respiratory effort is even, unlabored, Respiratory pattern is regular, symmetrical. GI: Abdomen is round non-distended. Derm: Skin is pink, warm \\T\\ dry. Musculoskeletal: Circulation, motion, and sensation intact. 11:30 Reassessment: Patient appears in no apparent distress at this time. Patient and/or eh3 family updated on plan of care and expected duration. Pain level reassessed. Patient is alert, oriented x 3, equal unlabored respirations, skin warm/dry/pink. 12:30 Reassessment: Patient appears in no apparent distress at this time. Patient and/or eh3 family updated on plan of care and expected duration. Pain level reassessed. Patient is alert, oriented x 3, equal unlabored respirations, skin warm/dry/pink. 13:11 Reassessment: Pt discharged but wants to stay until NS bolus complete, 200mL remains to eh3 be infused. Vital Signs: 10:38 BP 150 / 89; Pulse 110; Resp 18; Temp 97.5(TE); Pulse Ox 97% on R/A; Weight 97.52 kg; ld1 Height 6 ft. 2 in. ; Pain 0/10; 11:30 BP 145 / 88; Pulse 102; Resp 23; Pulse Ox 95% on R/A; eh3 12:30 BP 133 / 79; Pulse 90; Resp 20; Pulse Ox 96% on R/A; eh3 10:38 Body Mass Index 27.60 (97.52 kg, 187.96 cm) ld1 10:38 Pain Scale: Adult ld1 ED Course: 10:29 Patient arrived in ED. im 10:29 Evelyn Heard DO is Private Physician. im 10:34 Rosalio Cordero MD is Attending Physician. rt 10:38 Triage completed. ld1 10:38 Arm band placed on right wrist. ld1 10:45 Patient has correct armband on for positive identification. Placed in gown. Bed in low eh3 position. Call light in reach. Side rails up X2. Client placed on continuous cardiac and pulse oximetry monitoring. NIBP monitoring applied. Door closed. Noise minimized. Lights dimmed. Warm blanket given. 10:55 Treva Swain, RN is Primary Nurse. eh3 11:16 XRAY Chest (1 view) In Process Unspecified. EDMS 11:44 Inserted saline lock: 20 gauge in right antecubital area, using aseptic technique. eh3 Blood collected. Completed by [facility] staff. 12:41 Evelyn Heard DO is Referral Physician. rt 13:25 No provider procedures requiring assistance completed. IV discontinued, intact, eh3 bleeding controlled, No redness/swelling at site. Pressure dressing applied. Administered Medications: 11:42 Drug: NS 0.9% IV 1000 ml Route: IV; Rate: 1 bolus; Site: right antecubital; eh3 13:26 Follow up: IV Status: Completed infusion; IV Intake: 1000ml eh3 13:11 Drug: Potassium Chloride PO 40 mEq Route: PO; eh3 13:26 Follow up: Response: No adverse reaction eh3 Medication: 13:25 VIS not applicable for this client. eh3 Intake: 13:26 IV: 1000ml; Total: 1000ml. eh3 Outcome: 12:42 Discharge ordered by . rt 13:41 Discharged to home ambulatory, with significant other. eh3 13:41 Condition: stable 13:41 Discharge instructions given to patient, significant other, Instructed on discharge instructions, follow up and referral plans. medication usage, Demonstrated understanding of instructions, follow-up care, medications, Prescriptions given X 1. 13:41 Patient left the ED. eh3 Signatures: Dispatcher [employer] EDMS Dianne Flores RN RN ld1 Treva Swain RN RN eh3 Rosalio Cordero MD MD rt Cheryl Newell
[2023-03-01] MEDS ORDERED: POTASSIUM CL SA 10 MEQ TAB PO ONE (13:12)
[2023-03-01 14:31] VITALS: TEMP 97.5
[2023-03-01 14:43] VITALS: BP 133/79; O2SAT 96
--- NOTE | 2023-03-02 12:37 | EKG ---
Test Date: 2023-03-01 Test Time: 11:22:17 Data Entry Specialist: MAURY MEASUREMENT RESULTS: Intervals: Rate: 98 MN: 152 QRSD: 84 QT: 356 QTc: 454 [place]: P: 54 MN: 152 QRS: 45 T: 19 INTERPRETIVE STATEMENTS: Normal sinus rhythm Normal ECG Compared to ECG 06/21/2022 20:44:18 No significant changes Electronically Signed On 03-02-23 12:35:02 CDT by Keenan Figueroa
== END 2023-03-01 13:41 | disposition home or self-care (01) ==
LOC: ER 10:27
DX: E87.6 Hypokalemia (principal); N62 Hypertrophy of breast; E11.9 Type 2 diabetes mellitus without complications; I10 Essential (primary) hypertension; E78.00 Pure hypercholesterolemia, unspecified
CPT/HCPCS: 85025; 81001; 80048; 36415; 83735; 82550; 80076; 84443; 84484; 83880; 71045; J7030; 93005; 96360; 96361; 99284

== ENCOUNTER 2023-10-02 19:59 | Inpatient (IN) | payer OTHER ==
--- OUTSIDE RECORDS SUMMARY | 2023-10-02 20:01 | XMS REPORT | Continuity of Care Document ---
Author Name Unknown Address [address] [facility] [address] th[address] Address [address] [address] [address] [place] [address] Care Team Providers Care Warehouse Incentive Selector Name Role Phone Evelyn Heard Attending Clinician Unavailable Evelyn Heard Admitting Clinician Unavailable Payers Payer Name Policy Type Policy Number Effective Date Expirati on Date Source [employer] MEDICARE PPO 53 [id number] [facility] Problems Condition Name Condition Details Condition Category Status Onset Date Resolution Date Last Treatment Date Treating Clinician Comments Source [id number] Prostate nodule Problem [facility] [id number] 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 Problem [facility] [id number] 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 Ordering Clinician Indication Dosage Frequency Signature (SIG) Comments Components Source Indapamide 2.5 MG Indapamide 2.5 MG No 1{table t_in_th e_morni ng} QD Indapamide 2.5 MG Glimepiride 4 MG Glimepiride 4 MG No 1{table t_with_ breakfa st_or_t he_firs t_main_ meal_of _the_da y} QD Glimepirid e 4 MG Potassium Gluconate 595 MG Potassium Gluconate 595 MG No 1{capsu le_with _food} QD Potassium Gluconate 595 MG Allopurinol 300 MG Allopurinol 300 MG No 1{table t} QD Allopurino l 300 MG Pantoprazol e Sodium 40 MG Pantoprazol e Sodium 40 MG No 1{table t} QD Pantoprazo le Sodium 40 MG Atorvastati n Calcium 10 MG Atorvastati n Calcium 10 MG No 1{table t} QD Atorvastat in Calcium 10 MG Anastrozole 1 MG Anastrozole 1 MG No Anastrozol e 1 MG Vital Signs Vital Name Observation Time Observation Value Comments S ource height 2023-07-19 08:15:00 74 [in_i] Commo n [facility] weight 2023-07-19 08:15:00 221.4 [lb_av] Co mmon [facility] temperature 2023-07-19 08:15:00 97.1 [degF] Com mon [facility] bmi 2023-07-19 08:15:00 28.42 kg/m2 Comm on [facility] oximetry 2023-07-19 08:15:00 99 % Commo n [facility] respiratory rate 2023-07-19 08:15:00 18 /min [facility] blood pressure systolic 2023-07-19 08:15:00 124 mm[Hg] [facility] blood pressure diastolic 2023-07-19 08:15:00 68 mm[Hg] [facility] Encounters Start Date/Time End Date/Time Encounter Type Admission Type Attending Clinicians Care Facility Care Department Encounter ID Source 2023-07-19 07:52:00 Outpatient Evelyn Heard [facility] [id number] [facility] 2023-07-19 00:00:00 2023-07-19 00:00:00 OFFICE VISIT ESTAB PT LEVEL 4 [facility] [id number] Jason [facility]
[2023-10-02 21:19] LABS: Absolute Lymphocytes (CBC) 0.7 K/uL (0.7-4.9); Lymphocytes % 2.8 % (15.3-44.8); MCV 86.3 fL (80-100); MPV 9.3 fL (7.6-11.3); Platelets 150 thou/uL (152-406); RBC Red Blood Cell Count 4.98 M/uL (4.33-5.43)
[2023-10-02] MEDS ORDERED: ONDANSETRON 4 MG/2 ML VIAL ONE (21:26)
[2023-10-02] MEDS ORDERED: MORPHINE 2 MG/ML SYR ONE (21:27)
[2023-10-02 21:32] LABS: Protein, Total 7.7 g/dL (6.4-8.2)
[2023-10-02 21:42] LABS: Potassium 3.5 mEq/L (3.5-5.1)
[2023-10-02 22:19] LABS: Renal Epithelial <5 /HPF (None Seen); Specific Gravity 1.022 (1.005-1.030); Urine Bacteria <20 /HPF (<20); Urine Bilirubin NEGATIVE (Negative); Urine Blood 3+ (OVER) (Negative); Urine Clarity Extremely Turbid (Clear); Urine Color Yellow (Yellow); Urine Glucose NEGATIVE (Negative); Urine Protein 2+ (Negative); Urine RBC >50 /HPF (None Seen); Urine Urobilinogen Normal (Normal); Urine WBC Clump Rare /HPF (None Seen)
[2023-10-02 22:32] LABS: Blood Morphology Comment NOT SEEN (NOT SEEN); Platelet Estimate ADEQ; White Blood Cell Scan OK (OK)
[2023-10-02] MEDS ORDERED: VANCOMYCIN 1 GM/VIAL ONE (23:58)
[2023-10-02] MEDS ORDERED: NA CHLORIDE 0.9% 2,000 ML ONE (23:58)
[2023-10-02] MEDS ORDERED: NA CHLORIDE 0.9% 100 ML ONE (23:59)
[2023-10-02] MEDS ORDERED: PIPERACIL/TAZO 3.375 GM VIAL IV ONE (23:59)
[2023-10-02] MEDS ORDERED: NA CHLORIDE 0.9% 500 ML ONE (23:59)
[2023-10-03 00:46] LABS: Protime INR 1.27
[2023-10-03 01:09] LABS: Troponin High Sensitivity 13.1 pg/mL (<58.9)
--- NOTE | 2023-10-03 01:51 | P.HP ---
Certification for Inpatient Patient admitted to: Inpatient With expected LOS: >2 Midnights Practitioner: I am a practitioner with admitting privileges, knowledge of patient current condition, hospital course, and medical plan of care. Services: Services provided to patient in accordance with Admission requirements found in Title 42 Section 412.3 of the Code of Federal Regulations Patient History Date of Service: 10/03/23 Reason for admission: Frequency of urination, acute prostatitis. History of Present Illness: 73-year-old male patient who recently had a prostate biopsy procedure by urologist who came to the ED with complaint of persistent urine leak. He reported inability to control his urinary flow with no overt episode of fever, chills, rigor, nausea, vomiting, malaise. He reports no poor appetite and because of his concerns and recent intervention in the prostate as per urology service he had imaging of the CT abdomen and pelvis done that revealed inflammation in the prostate concerning for acute prostatitis. No overt abscess was seen by original physician. He was admitted for inpatient care for IV antibiotic therapy and urology evaluation. He is admission white cell count was 26 K. Allergies No Known Allergies Allergy (Unverified 10/03/23 02:40) Review of Systems General: Malaise Eyes: Unremarkable ENT: Unremarkable Respiratory: Unremarkable Cardiovascular: Unremarkable Gastrointestinal: Unremarkable Genitourinary: Frequency, Incontinence Musculoskeletal: Unremarkable Integumentary: Unremarkable Neurological: Unremarkable Lymphatics: Unremarkable Physical Examination - Physical Exam General: Alert, Oriented x3 HEENT: Atraumatic, Normocephalic Neck: Supple Respiratory: Normal air movement Cardiovascular: Normal pulses, Regular rate/rhythm Gastrointestinal: Soft and benign Musculoskeletal: No swelling Neurological: Normal speech, Normal strength at 5/5 x4 extr - Studies Laboratory Data (last 24 hrs) 10/02/23 10/02/23 10/02/23 23:56 20:57 20:57 WBC 26.40 H Hgb 14.4 Hct 43.0 Plt Count 150 L PT 13.9 H INR 1.27 Sodium 134 L Potassium 3.5 BUN 28 H Creatinine 1.51 H Glucose 199 H Total Bilirubin 2.0 H AST 102 H ALT 56 Alkaline Phosphatase 100 Lipase 37 Assessment and Plan - Plan Acute prostatitis: Deemed to complication of recent prostate biopsy procedure. Elevated white cell count of 26k noted. Empiric antibiotic therapy with Zosyn started. Follow symptoms and cultures for adjustment as needed. Urology consultation placed for management recommendation JON: Creatinine is elevated at 1.5 on admission. This is deemed secondary to issues with infectious process possibility of other issues raised. IV hydration with isotonic fluid to be continued for management and will follow trend of kidney function. Prophylaxis: Lovenox for DVT prophylaxis CODE STATUS: Full code Disposition: We will treat his acute prostatitis episode and he will be discharged when deemed clinically stable. Discharge Plan: Home - Advance Directives Does patient have a Living Will: No Does patient have a Durable POA for Healthcare: No
[2023-10-03] MEDS: NA CHLORIDE 0.9% 1,000 ML IV SCH (02:00)
--- NOTE | 2023-10-03 02:09 | ER ---
Nurse's Notes [facility] Name: Dax Steven Sr Age: 73 yrs Sex: Male : 1950 Arrival Date: 10/02/2023 Time: 19:59 Bed 19 Private MD: Diagnosis: Acute prostatitis;Sepsis, unspecified organism Presentation: 10/02 20:23 Chief complaint: Patient states: Pt states he had a biopsy of the prostate done last tl4 . Pt c/o constipation and urinary incontinence since the procedure. Coronavirus screen: Vaccine status: Patient reports receiving the 2nd dose of the covid vaccine. Ebola Screen: Patient negative for fever greater than or equal to 101.5 degrees Fahrenheit, and additional compatible Ebola Virus Disease symptoms Patient denies exposure to infectious person. Patient denies travel to an Ebola-affected area in the 21 days before illness onset. No symptoms or risks identified at this time. Initial Sepsis Screen: Does the patient meet any 2 criteria? No. Patient's initial sepsis screen is negative. Does the patient have a suspected source of infection? No. Patient's initial sepsis screen is negative. Risk Assessment: Do you want to hurt yourself or someone else? Patient reports no desire to harm self or others. Onset of symptoms was September 27, 2023. 20:23 Method Of Arrival: Ambulatory tl4 20:23 Acuity: VA 3 tl4 Triage Assessment: 20:27 General: Appears uncomfortable, Behavior is calm, cooperative. Pain: Complains of pain tl4 in abdomen. EENT: No deficits noted. No signs and/or symptoms were reported regarding the EENT system. Neuro: No deficits noted. Cardiovascular: No deficits noted. Denies chest pain, diaphoresis, lightheadedness, palpitations, syncope. Respiratory: No deficits noted. Denies cough, shortness of breath. GI: Reports lower abdominal pain, constipation. : Reports incontinence, since 09/27/2023. Historical: - Allergies: 20:26 No Known Allergies; tl4 - PMHx: 20:26 diabetes mellitus; Gout; Hypercholesterolemia; Hypertensive disorder; tl4 - Immunization history:: Adult Immunizations unknown. - Social history:: Smoking status: Patient denies any tobacco usage or history of. - Family history:: not pertinent. Screenin:32 [facility] ED Fall Risk Assessment (Adult) History of falling in the last 3 months, lg3 including since admission No falls in past 3 months (0 pts). Abuse screen: Denies threats or abuse. Denies injuries from another. Nutritional screening: No deficits noted. Tuberculosis screening: No symptoms or risk factors identified. Assessment: 21:32 General: Appears in no apparent distress. comfortable, Behavior is calm, cooperative. lg3 Pain: Complains of pain in suprapubic area and pelvis. Neuro: No deficits noted. [place] Agitation-Sedation Scale (RASS): 0 - Alert and Calm Level of Consciousness is awake, alert, obeys commands, Oriented to person, place, time, situation. Cardiovascular: No deficits noted. Denies chest pain, shortness of breath, Capillary refill < 3 seconds Clubbing of nail beds is absent JVD is absent Patient's skin is warm and dry. Respiratory: No deficits noted. Airway is patent Respiratory effort is even, unlabored, Respiratory pattern is regular, symmetrical. GI: Abdomen is round non-distended, Bowel sounds present X 4 quads. Abd is soft and non tender X 4 quads. Reports constipation. : No deficits noted. Urine is clear, Reports incontinence, inability to void. EENT: No deficits noted. No signs and/or symptoms were reported regarding the EENT system. Derm: No deficits noted. No signs and/or symptoms reported regarding the dermatologic system. Skin is intact, is healthy with good turgor, Skin is dry, Skin is normal, Skin temperature is warm. Musculoskeletal: No deficits noted. No signs and/or symptoms reported regarding the musculoskeletal system. Circulation, motion, and sensation intact. Range of motion: intact in all extremities. 22:15 Reassessment: Patient appears in no apparent distress at this time. No changes from lg3 previously documented assessment. Patient and/or family updated on plan of care and expected duration. Pain level reassessed. Patient is alert, oriented x 3, equal unlabored respirations, skin warm/dry/pink. 23:20 Reassessment: Patient and/or family updated on plan of care and expected duration. Pain ha1 level reassessed. Patient is alert, oriented x 3, equal unlabored respirations, skin warm/dry/pink. 10/03 00:20 Reassessment: Patient and/or family updated on plan of care and expected duration. Pain ha1 level reassessed. Patient is alert, oriented x 3, equal unlabored respirations, skin warm/dry/pink. Vital Signs: 10/02 20:23 BP 138 / 76; Pulse 114; Resp 18; Temp 98.8; Pulse Ox 97% on R/A; Weight 96.62 kg; tl4 Height 6 ft. 2 in. ; Pain 8/10; 22:00 BP 111 / 65; Pulse 93; Resp 15 S; Pulse Ox 97% on R/A; lg3 22:45 BP 108 / 58; Pulse 89; Resp 18 S; Pulse Ox 96% on R/A; ha1 10/03 00:33 BP 124 / 72; Pulse 86; Resp 17 S; Pulse Ox 98% on R/A; ha1 02:55 BP 123 / 73; Pulse 87; Resp 15 S; Pulse Ox 97% on R/A; lg3 10/02 20:23 Body Mass Index 27.35 (96.62 kg, 187.96 cm) tl4 10/02 20:23 Pain Scale: Adult tl4 ED Course: 10/02 20:06 Patient arrived in ED. ag3 20:11 Aron Medley MD is Attending Physician. sp4 20:26 Triage completed. tl4 20:28 Arm band placed on left wrist. tl4 20:54 CBC with Diff Sent. cm10 20:54 CMP Sent. cm10 20:54 Lipase Sent. cm10 20:54 Initial lab(s) drawn, by mt, sent to lab. Inserted saline lock: 20 gauge in right cm10 antecubital area, using aseptic technique. Blood collected. 21:32 Patient has correct armband on for positive identification. Placed in gown. Bed in low lg3 position. Call light in reach. Side rails up X 1. Client placed on continuous cardiac and pulse oximetry monitoring. NIBP monitoring applied. Door closed. Noise minimized. Warm blanket given. Family accompanied patient. 21:32 Patient maintains SpO2 saturation greater than 95% on room air. lg3 22:12 Mary Momin, CAROL is Primary Nurse. lg3 22:52 CT Abd/Pelvis - IV Contrast Only In Process Unspecified. EDMS 10/03 02:07 Александр Murphy MD is Hospitalizing Provider. sp4 02:15 Inserted saline lock: 20 gauge in left antecubital area, using aseptic technique. lg3 03:20 EKG done, by ED staff, reviewed by Aron Medley MD. wm Administered Medications: 10/02 22:17 Drug: Ondansetron IVP 4 mg IVP once; over 2 minutes Route: IVP; Site: right antecubital;lg3 10/03 00:25 Follow up: Response: No adverse reaction; Marked relief of symptoms lg3 10/02 22:17 Drug: morphine IVP or IV 2 mg IVP once over 4 mins Route: IVP; Infused Over: 4 mins; lg3 Site: right antecubital; 10/03 00:25 Follow up: Response: No adverse reaction; Marked relief of symptoms lg3 00:25 Drug: Piperacillin-Tazobactam IVPB 3.375 grams IVPB once over 60 mins; (mix in NS 100 ha1 mL) Route: IVPB; Infused Over: 60 mins; Site: left antecubital; 01:04 Follow up: Response: No adverse reaction; IV Status: Completed infusion; IV Intake: lg3 100ml 00:39 Drug: NS 0.9% IV 1000 ml IV at 1 bolus Per protocol; 1000 mL bolus Route: IV; Rate: 1 ha1 bolus; Site: right antecubital; 02:17 Follow up: IV Status: Completed infusion; IV Intake: 1000ml lg3 00:39 Drug: NS 0.9% IV 1000 ml IV at 125 ml/hr continuous Route: IV; Rate: 125 ml/hr; Site: ha1 left antecubital; 02:15 Drug: vancoMYCIN IVPB 2 grams IVPB at calculated rate once Route: IVPB; Rate: lg3 calculated rate; Site: left antecubital; 02:55 Drug: NS 0.9% IV 1000 ml IV at 1 bolus Per protocol; 1000 mL bolus Route: IV; Rate: 1 lg3 bolus; Site: left antecubital; Intake: 01:04 IV: 100ml; Total: 100ml. lg3 02:17 IV: 1000ml; Total: 1100ml. lg3 Outcome: 02:08 Decision to Hospitalize by Provider. sp4 12:44 Patient left the ED. ap3 Signatures: Dispatcher [employer] EDMS Flakita Bustos RN RN ap3 Marleny Ibarra Lacie, RN RN lg3 Lyndsey Arce Heidy, CAROL RN ha1 Aron Medley MD MD sp4 Tameka Paulino RN RN cm10 Juan Rand 4
--- NOTE | 2023-10-03 02:09 | EDPHYS ---
Physician Documentation [facility] Name: Dax Steven Sr Age: 73 yrs Sex: Male : 1950 Arrival Date: 10/02/2023 Time: 19:59 Bed 19 Private MD: ED Physician Aron Medley HPI: 10/02 20:11 This 73 yrs old Black Male presents to ER via Unassigned with complaints of sp4 Constipation, Urinary Problem. 20:26 Allergies: No Known Allergies; Home Meds: allopurinol 300 mg Oral tab 1 tab once daily; sp4 glimepiride 4 mg Oral tab 1 tab once daily; pantoprazole 40 mg Oral TbEC 1 tab once daily; atorvastatin 10 mg Oral tab 1 tab once daily; potassium gluconate 595 mg (99 mg) Oral tab daily; indapamide 2.5 mg Oral tab 1 tab once daily PMHx: Hypercholesterolemia; Diabetes mellitus; Gout; Hypertensive disorder; . 10/03 01:08 Patient is a very pleasant 73-year-old male with history of diabetes type 2, gout, sp4 hypercholesterolemia, hypertensive disorder, benign prostatic hypertrophy. Patient had prostate biopsy on , 09/28/2023 . Since he has a biopsy patient has developed constipation, prostate pain, and also urinary incontinence. Patient presents here for the above symptoms. Denied fever or abdominal pain. . Historical: - Allergies: 10/02 20:26 No Known Allergies; tl4 - PMHx: 20:26 diabetes mellitus; Gout; Hypercholesterolemia; Hypertensive disorder; tl4 - Immunization history:: Adult Immunizations unknown. - Social history:: Smoking status: Patient denies any tobacco usage or history of. - Family history:: not pertinent. ROS: 10/03 01:08 Constitutional: Negative for fever, chills, and weight loss, positive prostate pain, sp4 positive constipation, positive urinary incontinence. All other systems are negative, Exam: 01:08 Constitutional: This is a well developed, well nourished patient who is awake, alert, sp4 and in no acute distress. Head/Face: Normocephalic, atraumatic. Eyes: Pupils equal round and reactive to light, extra-ocular motions intact. Lids and lashes normal. Conjunctiva and sclera are not injected. Cornea within normal limits. Periorbital areas with no swelling, redness, or edema. ENT: Nares patent. No nasal discharge, no septal abnormalities noted. Tympanic membranes are normal and external auditory canals are clear. Oropharynx with no redness, swelling, or masses, exudates, or evidence of obstruction, uvula midline. Mucous membranes moist. Neck: Trachea midline, no thyromegaly or masses palpated, and no cervical lymphadenopathy. Supple, full range of motion without nuchal rigidity, or vertebral point tenderness. Chest/axilla: Normal chest wall appearance and motion. Nontender with no deformity. No lesions are appreciated. Cardiovascular: Regular rate and rhythm with a normal S1 and S2. No gallops, murmurs, or rubs. Normal PMI, no JVD. No pulse deficits. Respiratory: Lungs have equal breath sounds bilaterally, clear to auscultation and percussion. No rales, rhonchi or wheezes noted. No increased work of breathing, no retractions or nasal flaring. Abdomen/GI: Soft, non-tender, with normal bowel sounds. No distension or tympany. No guarding or rebound. No evidence of tenderness throughout. Digital rectal exam revealed no active bleeding, enlarged and tender prostate, no mass, no melena, no other findings. Male : Normal genitalia with no discharge or lesions. There is incontinence of urine on exam, no lesions no swelling. Normal perineum, normal bilateral testicular exam. Patient is uncircumcised male. Skin: Warm, dry with normal turgor. Normal color with no rashes, no lesions, and no evidence of cellulitis. MS/ Extremity: Pulses equal, no cyanosis. Neurovascular intact. Full, normal range of motion. Neuro: Awake and alert, GCS 15, oriented to person, place, time, and situation. Cranial nerves II-XII grossly intact. Motor strength 5/5 in all extremities. Sensory grossly intact. Psych: Awake, alert, with orientation to person, place and time. Behavior, mood, and affect are within normal limits 07:59 ECG was reviewed by the Attending Physician. EKG 3:11 sp4 Vital Signs: 10/02 20:23 BP 138 / 76; Pulse 114; Resp 18; Temp 98.8; Pulse Ox 97% on R/A; Weight 96.62 kg; tl4 Height 6 ft. 2 in. ; Pain 8/10; 22:00 BP 111 / 65; Pulse 93; Resp 15 S; Pulse Ox 97% on R/A; lg3 22:45 BP 108 / 58; Pulse 89; Resp 18 S; Pulse Ox 96% on R/A; ha1 10/03 00:33 BP 124 / 72; Pulse 86; Resp 17 S; Pulse Ox 98% on R/A; ha1 02:55 BP 123 / 73; Pulse 87; Resp 15 S; Pulse Ox 97% on R/A; lg3 10/02 20:23 Body Mass Index 27.35 (96.62 kg, 187.96 cm) tl4 10/02 20:23 Pain Scale: Adult tl4 MDM: 10/02 20:20 Patient medically screened. sp4 10/03 00:20 ED course: COMPARISON: None. FINDINGS: Lower thorax: Bibasilar atelectasis. Abdomen: sp4 Stomach:Within normal limits Liver:No focal lesions. Hepatic steatosis. No intrahepatic ductal distention. Gallbladder:Cholelithiasis. Pancreas:Within normal limits Spleen:Within normal limits Right kidney:No hydronephrosis. Subcentimeter hypodensity, too small to characterize. Left kidney:No hydronephrosis. Subcentimeter hypodensities, too small to characterize. Adrenal glands:Within normal limits Vascular structures:Atherosclerosis of the abdominal aorta and major branches. Nodes:No lymphadenopathy by size criteria Pelvis: Small bowel:No significant distention. Appendix:Within normal limits Colon:No distention or acute pericolonic edema. Colonic diverticulosis. Peritoneum: No free air. Trace free fluid in the pelvis. Bones: No acute bone findings. Bladder: Diffuse wall thickening with surrounding stranding. Reproductive organs: Prostatomegaly with surrounding stranding. Linearly oriented hypodensity in the prostate likely secondary to prior intervention. IMPRESSION: 1. Diffuse bladder wall thickening with surrounding stranding, can be seen in setting of cystitis. Correlate with urinalysis. 2. Prostatomegaly with surrounding stranding, can be seen in setting of prostatitis. Linearly oriented hypodensity in the prostate likely secondary to prior intervention. Please correlate with surgical history. 3. Hepatic steatosis. 4. Cholelithiasis. 5. Colonic diverticulosis without diverticulitis. 6. Trace free fluid in the pelvis. . 01:08 Differential Diagnosis altered mental status, sepsis, flu, Acute prostatitis with sp4 sepsis. Data reviewed: vital signs, nurses notes, old medical records, lab test result(s), radiologic studies, CT scan. Consideration of Admission/Observation Escalation of care including admission/observation considered. ED course: Patient has signs of sepsis with white count 26, with neutrophilic predominance. CT has revealed diffuse bladder wall thickening with surrounding stranding, prostatomegaly with surrounding stranding consistent with prostatitis, linear oriented hypodensity in the prostate secondary to prior intervention, hepatic steatosis, cholelithiasis, colonic diverticulosis. Trace free fluid in the pelvis. Overall presentation is consistent with prostatitis associated with concurrent sepsis. . 02:07 ED course: Patient's urologist have returned the call and states he will see him on 4 Monday for the above problem of prostatitis. Patient is stable for admission to this hospital to hospitalist. . 02:08 Management of patient was discussed with the following: Hospitalist: Katherine NIX . sp4 Wire Weaver Cloth: Tiago [facility] . 02:48 ED course: Sepsis reevaluation, patient has improved and is hemodynamically stable. sp4 Patient has signs of sepsis without septic shock. Septic antibiotics administered, 30 mL/kg septic fluid bolus doses are contraindicated secondary to old age and history of prior CHF. . 10/02 20:31 Order name: CBC with Diff; Complete Time: 23:39 [facility] 10/02 20:31 Order name: CMP; Complete Time: 23:39 [facility] 10/02 20:31 Order name: Lipase; Complete Time: 23:39 [facility] 10/02 20:31 Order name: Urinalysis w/ reflexes; Complete Time: 23:39 [facility] 10/02 22:23 Order name: Urine Culture [facility] 10/02 22:32 Order name: CBC Smear Scan; Complete Time: 23:39 [facility] 10/02 23:40 Order name: Blood Culture Adult (2) [facility] 10/02 23:40 Order name: Procalcitonin; Complete Time: 02:48 [facility] 10/02 23:41 Order name: CRP; Complete Time: :14 [facility] 10/02 23:41 Order name: PT-INR; Complete Time: : [facility] 10/02 23:41 Order name: Lactate w/ 2H reflex if indic.; Complete Time: :14 [facility] 10/02 23:41 Order name: Troponin High Sensitivity; Complete Time: 01:14 sp4 10/02 23:41 Order name: CK; Complete Time: :14 4 10/03 01:06 Order name: Glucose, Ancillary Testing; Complete Time: 01:14 [facility] 10/03 01:52 Order name: Urinalysis w/ reflexes [facility] 10/03 01:52 Order name: Basic Metabolic Panel [facility] 10/03 01:52 Order name: Basic Metabolic Panel [facility] 10/03 01:52 Order name: CBC with Automated Diff [facility] 10/03 01:52 Order name: CBC with Automated Diff [facility] 10/03 11:03 Order name: CBC with Automated Diff [facility] 10/03 11:10 Order name: Basic Metabolic Panel [facility] 10/02 20:31 Order name: CT Abd/Pelvis - IV Contrast Only [facility] 10/03 01:52 Order name: CONS Physician Consult [facility] 10/02 20:31 Order name: IV Saline Lock; Complete Time: 20:54 [facility] 10/02 20:31 Order name: Labs collected and sent; Complete Time: 20:54 [facility] 10/03 02:59 Order name: EKG - Nurse/Tech; Complete Time: 03:16 vc1 EC:59 Rate is 89 beats/min. Rhythm is regular, Normal Sinus Rhythm. QRS Mcalister is Normal. AR sp4 interval is normal. QRS interval is normal. QT interval is normal. No Q waves. T waves are Normal. No ST changes noted. Clinical impression: Normal ECG. Interpreted by me. Reviewed by me. Administered Medications: 10/02 22:17 Drug: Ondansetron IVP 4 mg IVP once; over 2 minutes Route: IVP; Site: right antecubital;lg3 10/03 00:25 Follow up: Response: No adverse reaction; Marked relief of symptoms lg3 10/02 22:17 Drug: morphine IVP or IV 2 mg IVP once over 4 mins Route: IVP; Infused Over: 4 mins; lg3 Site: right antecubital; 10/03 00:25 Follow up: Response: No adverse reaction; Marked relief of symptoms lg3 00:25 Drug: Piperacillin-Tazobactam IVPB 3.375 grams IVPB once over 60 mins; (mix in NS 100 ha1 mL) Route: IVPB; Infused Over: 60 mins; Site: left antecubital; 01:04 Follow up: Response: No adverse reaction; IV Status: Completed infusion; IV Intake: lg3 100ml 00:39 Drug: NS 0.9% IV 1000 ml IV at 1 bolus Per protocol; 1000 mL bolus Route: IV; Rate: 1 ha1 bolus; Site: right antecubital; 02:17 Follow up: IV Status: Completed infusion; IV Intake: 1000ml lg3 00:39 Drug: NS 0.9% IV 1000 ml IV at 125 ml/hr continuous Route: IV; Rate: 125 ml/hr; Site: ha1 left antecubital; 02:15 Drug: vancoMYCIN IVPB 2 grams IVPB at calculated rate once Route: IVPB; Rate: lg3 calculated rate; Site: left antecubital; 02:55 Drug: NS 0.9% IV 1000 ml IV at 1 bolus Per protocol; 1000 mL bolus Route: IV; Rate: 1 lg3 bolus; Site: left antecubital; Disposition Summary: 10/03/23 02:08 Hospitalization Ordered Notes: Hospitalization Status: Inpatient Admission sp4 Provider: Александр Murphy sp4 Condition: Stable sp4 Problem: new sp4 Symptoms: have improved sp4 Bed/Room Type: Standard sp4 Location: Telemetry/MedSurg (Inpatient)(10/03/23 10:49) [facility] Room Assignment: [facility](10/03/23 10:49) [facility] Diagnosis - Acute prostatitis sp4 - Sepsis, unspecified organism sp4 Forms: - Medication Reconciliation Form sp4 - SBAR form sp4 - Leadership Thank You Letter sp4 Signatures: Dispatcher [employer] Mary [place] RN RN lg3 Earlene Rutherford RN RN vc1 Jessica Medeiros RN RN ha1 Diana Vega RN RN kc6 Aron Medley MD MD sp4 Juan Rand4 Corrections: (The following items were deleted from the chart) 03:24 02:08 Telemetry/MedSurg (Inpatient) sp4 vc1 03:24 02:08 sp4 vc1 10:49 03:24 [facility] ER HOLD vc1 kc6 10:49 03:24 ERHOLD- vc1 kc6
[2023-10-03] MEDS ORDERED: NA CHLORIDE 0.9% 1,000 ML ONE (02:52)
[2023-10-03 05:06] VITALS: BMI 27.3
[2023-10-03] MEDS: PNEUMOCOCCAL VACCINE 0.5 ML IMVAC ONE (08:00)
[2023-10-03] MEDS: ENOXAPARIN 40 MG/0.4 ML SQ SCH (09:59)
[2023-10-03] MEDS: PIPER TAZO 3.375 GM in NA CHLORIDE 0.9% 100 ML IV SCH (09:59)
[2023-10-03 10:55] LABS: Absolute Lymphocytes (CBC) 0.8 K/uL (0.7-4.9); Hematocrit 38.5 % (39.6-49.0); Lymphocytes % 4.2 % (15.3-44.8); MCV 87.4 fL (80-100); MPV 8.9 fL (7.6-11.3); Platelets 141 thou/uL (152-406); RBC Red Blood Cell Count 4.41 M/uL (4.33-5.43)
[2023-10-03 11:09] LABS: Potassium 3.1 mEq/L (3.5-5.1)
--- NOTE | 2023-10-03 12:06 | P.PN ---
Date of Service: 10/03/23 Subjective: Reports incontinence since recent prostate biopsy 09/28/23 has urge to have BM, however nothing comes out +prostate pain afebrile ROS: 10 point ROS as noted above, otherwise negative Physical Exam: GEN: Alert, oriented, NAD HEENT: Normal conjunctiva, sclera anicteric CV: Regular rate and rhythm, no edema Pulm: Nonlabored respirations on room air, clear bilaterally ABD: Soft, nontender, nondistended Neuro: Normal speech, normal affect vitals reviewed Problem List: Acute prostatitis Urinary incontinence JON NIDDM2 hx of Gout Hypertension Constipation Acute prostatitis Urinary incontinence Patient reports urinary incontinence, constipation, prostate pain since recent prostate biopsy procedure on 09/28/23 CT abdomen (10/03): diffuse bladder wall thickening with surrounding stranding, prostatomegaly with surrounding stranding, linearly oriented hypodensity in prostate likely secondary to prior intervention. Hepatic steatosis, cholelithiasis, colonic diverticulosis without diverticuli tis, trace free fluid in the pelvis. Urology consulted - Dr. Ordoñez to evaluate urinalysis concerning for infection Follow blood and urine cultures Continue empiric zosyn (10/03-) afebrile, leukocytosis improving. CRP, procal elevated on admission. CK 1929. PRN analgesics / antiemetics JON continue IV fluids Monitor renal function improving NIDDM2 hx of Gout Hypertension confirm home meds, restart as appropriate VTE: Lovenox Code: Full Dispo: Home, ~2-3 days Pending further work up, urology recs, cx results
--- NOTE | 2023-10-03 13:03 | RAD REPORT ---
EXAM DESCRIPTION: CT - Abdomen Pelvis W Contrast - 10/03/2023 9:52 am RadLex: CT ABDOMEN PELVIS WITH IV CONTRAST CLINICAL HISTORY: 73 years Male; ABD PAIN; IV ONLY Bed Name: [facility] TECHNIQUE: CT of the abdomen and pelvis with intravenous contrast. All CT scans at this facility use dose modulation, iterative reconstruction, and/or weight based dosi ng when appropriate to reduce radiation dose to as low as reasonably achievable. COMPARISON: None. FINDINGS: Lower thorax: Bibasilar atelectasis. Abdomen: Stomach: Within normal limits Liver: No focal lesions. Hepatic steatosis. No intrahepatic ductal distention. Gallbladder: Cholelithiasis. Pancreas: Within normal limits Spleen: Within normal limits Right kidney: No hydronephrosis. Subcentimeter hypodensity, too small to characterize. Left kidney: No hydronephrosis. Subcentimeter hypodensities, too small to characterize. Adrenal glands: Within normal limits Vascular structures: Atherosclerosis of the abdominal aorta and major branches. Nodes: No lymphadenopathy by size criteria Pelvis: Small bowel: No significant distention. Appendix: Within normal limits Colon: No distention or acute pericolonic edema. Colonic diverticulosis. Peritoneum: No free air. Trace free fluid in the pelvis. Bones: No acute bone findings. Bladder: Diffuse wall thickening with surrounding stranding. Reproductive organs: Prostatomegaly with surrounding stranding. Linearly oriented hypodensity in the prostate likely secondary to prior intervention. IMPRESSION: 1. Diffuse bladder wall thickening with surrounding stranding, can be seen in setting of cystitis. Correlate with urinalysis. 2. Prostatomegaly with surrounding stranding, can be seen in setting of prostatitis. Linearly orien lupe hypodensity in the prostate likely secondary to prior intervention. Please correlate with surgica l history. 3. Hepatic steatosis. 4. Cholelithiasis. 5. Colonic diverticulosis without diverticulitis. 6. Trace free fluid in the pelvis. Electronically signed by: Dion Gillespie MD 10/02/2023 11:54 PM CAD INTERN Due to temporary technical issues with the PACS/Fluency reporting system, reports are being signed by the in house radiologists without review as a courtesy to insure prompt reporting. The interpreting radiologist is fully responsible for the content of the report.
[2023-10-04 07:02] LABS: Magnesium 2.2 mg/dL (1.6-2.4); Potassium 3.1 mEq/L (3.5-5.1)
[2023-10-04] MEDS: PANTOPRAZOLE 40MG TABLET PO SCH (08:30)
[2023-10-04] MEDS: HYDROCODONE/APAP 5/325 MG TAB PO PRN (08:31)
[2023-10-04] MEDS: allopurinoL 300 MG TAB PO SCH (08:31)
--- NOTE | 2023-10-04 09:41 | P.PN ---
Date of Service: 10/04/23 Subjective: Prostate pain ~same. Doesn't feel worse still incontinent. unable to control bladder no BM. Passing flatus afebrile ROS: 10 point ROS as noted above, otherwise negative Physical Exam: GEN: Alert, oriented, NAD HEENT: Normal conjunctiva, sclera anicteric CV: Regular rate and rhythm, no edema Pulm: Nonlabored respirations on room air, clear bilaterally ABD: Soft, nontender, nondistended Neuro: Normal speech, normal affect vitals reviewed Problem List: Acute prostatitis with GNR bacteremia Urinary incontinence JON, resolved NIDDM2 hx of Gout Hypertension Constipation Acute prostatitis with GNR bacteremia Urinary incontinence Patient reports urinary incontinence, constipation, prostate pain since recent prostate biopsy procedure on 09/28/23 CT abdomen (10/03): diffuse bladder wall thickening with surrounding stranding, prostatomegaly with surrounding stranding, linearly oriented hypodensity in prostate likely secondary to prior intervention. Hepatic steatosis, cholelithiasis, colonic diverticulosis without diverticulitis, trace free fluid in the pelvis. Urology consulted - Dr. Ordoñez to evaluate urinalysis concerning for infection Blood cx (10/04): 09/07 bottles growing GNR urine cx (10/04): prelim mixed desmond Continue empiric zosyn (10/03-) afebrile, CRP improving, leukocytosis improving ID consulted PRN analgesics / antiemetics JON, resolved improved with IV fluids Continue to monitor renal function NIDDM2 hx of Gout Hypertension confirm home meds, restart as appropriate VTE: Lovenox Code: Full Dispo: Home, ~2-3 days Pending further work up, urology recs, cx results
--- NOTE | 2023-10-04 09:43 | P.CNS ---
Date of Consult: 10/04/23 Reason for Consult: prostatitis, bacteremia Requesting Physician: Vaughn Clark Chief Complaint: Frequency of urination, acute prostatitis. History of Present Illness: Patient is a 73 yo male with a PMH of hyperlipidemia and diabetes mellitus type II who presented to the ED with complaints of urinary incontinence, hematuria and suprapubic pain. He reports recently undergoing prostate biopsy by his urologist on 09/27/2023 and has been experiencing this symptoms since the procedure. CT abdomen pelvis concerning for acute prostatitis. Blood and urine cultures obtained, patient was started on empiric IV antibiotic Zosyn. Infectious disease was consulted. Allergies No Known Allergies Allergy (Unverified 10/03/23 02:40) Home medications list reviewed: Yes Home Medications: Allopurinol 300 mg PO DAILY 10/03/23 Atorvastatin Calcium [Lipitor] 10 mg PO BEDTIME 10/03/23 Glimepiride 4 mg PO BID 10/03/23 Indapamide [Lozol] 2.5 mg PO DAILY 10/03/23 Pantoprazole [Protonix Tab] 40 mg PO DAILY 10/03/23 - Past Medical/Surgical History Diabetic: Yes - Social History Smoking Status: Unknown if ever smoked Alcohol use: No CD- Drugs: No Caffeine use: No Place of Residence: Home Review of Systems 10-point ROS is otherwise unremarkable Genitourinary: Incontinence, Hematuria, Other (suprapubic pain) Physical Examination Temp Pulse Resp BP Pulse Ox 99 F 74 18 137/61 98 10/04/23 04:00 10/04/23 04:00 10/04/23 04:00 10/04/23 04:00 10/04/23 04:00 General: Alert, In no apparent distress, Oriented x3 HEENT: Atraumatic, Normocephalic Respiratory: Clear to auscultation bilaterally, Normal air movement Cardiovascular: No edema, Regular rate/rhythm Gastrointestinal: Normal bowel sounds, Soft and benign Neurological: Normal speech, Normal tone Laboratory Data - Reviewed Microbiology Data - Reviewed Imagings Data: - CT abdomen Pelvis 10/02: "1. Diffuse bladder wall thickening with surrounding stranding, can be seen in setting of cystitis. Correlate with urinalysis. 2. Prostatomegaly with surrounding stranding, can be seen in setting of prostatitis. Linearly oriented hypodensity in the prostate likely secondary to prior intervention. Please correlate with surgical history. 3. Hepatic steatosis. 4. Cholelithiasis. 5. Colonic diverticulosis without diverticulitis. 6. Trace free fluid in the pelvis." Conclusions/Impression: Problem List Acute Prostatitis Gram-negative bacteremia Diabetes mellitus type II Gout Hypertension Urinary Incontinence Hematuria Acute Prostatitis Gram-negative bacteremia - Patient recently had prostate biopsy on 09/27/2023 - Currently on Zosyn (started 10/02) - Blood cultures 10/03: gram negative rods in 1 of 4 bottles - Urine culture 10/02: mixed desmond - WBC trending down (26.4 -> 20.2 -> 18.5) - Afebrile Recommendations - Continue Zosyn for now. Follow up with final blood culture results. Will adjust antibiotics as appropriate. - Acute prostatitis: continue antibiotic therapy for at least 14 days (10/02- 10/16) - Monitor WBC and fever trends - Continue supportive care - strict blood glucose control Case discussed with Gertrude Munguia
[2023-10-04 10:26] LABS: Absolute Lymphocytes (CBC) 1.1 K/uL (0.7-4.9); Hematocrit 41.1 % (39.6-49.0); Lymphocytes % 5.9 % (15.3-44.8); MCV 87.3 fL (80-100); MPV 8.8 fL (7.6-11.3); Platelets 151 thou/uL (152-406); RBC Red Blood Cell Count 4.71 M/uL (4.33-5.43)
[2023-10-04 11:39] LABS: Platelet Estimate DECR
[2023-10-04 11:40] LABS: Blood Morphology Comment NOT SEEN (NOT SEEN)
[2023-10-04] MEDS: ATORVASTATIN 10 MG TAB PO SCH (20:26)
[2023-10-04] MEDS: LIDOCAINE JELLY 2% 5 ML SYRINGE TOP ONE (22:24)
--- NOTE | 2023-10-04 23:06 | P.CNS ---
Date of Consult: 10/04/23 Reason for Consult: Prostatitis and sepsis Chief Complaint: Frequency of urination, acute prostatitis. History of Present Illness: 73-year-old gentleman with hypertension, DM 2, hypercholesterolemia, gout and GERD was seen in the urology clinic with elevated PSA and a right apical prostate nodule in the setting of an asymmetric prostate, right greater than left, and associated hypogonadism, hyperestrogenism associated with gynecomastia. He was started on anastrozole for the gynecomastia, and with improvement in his testosterone, his PSA, which was mildly elevated at 4.81 on 03/16/2023, went to 6.03 on 07/13/2023. Subsequent repeat of his PSA 09/19/2023 was 9.3. As a result, he underwent a biopsy of his prostate 09/28/2023. Rectal swab fluoroquinolone resistance testing was performed in preparation for the biopsy and revealed the presence of fluoroquinolone and Bactrim resistant E. coli, but it was sensitive to gentamicin and cefazolin. It was also sensitive to Augmentin, and the patient was prescribed Augmentin to start the day prior to the scheduled biopsy, but unfortunately, he was unable to gather the prescription until the morning of the biopsy when he took his first dose. As a result, I increased the antimicrobial prophylaxis at the time of the biopsy to include 4 to 5 mg/kg of gentamicin given 1 to 2 hours prior to the biopsy in addition to 1 g of cefazolin given immediately prior to the biopsy. The biopsy revealed a 109.76 g gland, PSA density 0.08. It was completed without obvious complication at the time of the biopsy. Subsequently, the patient went home and began to have significant issues with urinary frequency associated with significant urgency and urge incontinence requiring him to wear pads. He contacted the office by phone on Monday, but I was out of town, and was not contacted by phone to advise. Later that evening, he went to the emergency department for evaluation where he was found to have a significantly elevated white blood count 26.4 on 10/02/2023 and was suspected of sepsis. Despite this, he denies having been febrile or otherwise ill feeling at the time of his presentation for emergency evaluation, though I question his memory on the issue. His primary complaint was then and continues to be now issues with frequency/urgency and urge incontinence requiring him to wear depends undergarments, and penile pain. He has been started on Zosyn, based on my recommendation given the knowledge of the rectal swab culture results, and his white blood count has trended down to 18.5 as of today, 10/04/2023 with a creatinine of 1.2. Blood cultures revealed gram-negative rods in 1 of 2 bottles Urine culture revealed 10-100 K mixed desmond Examination: Patient well-appearing and in no acute distress He was resting and actually sleep at the time of my evaluation tonight No dyspnea or sign of respiratory distress Abdomen soft, nontender, nondistended I counseled the patient that given his significant urinary bother, I was concerned about the potential for urinary retention with overflow incontinence, given the significant size of his prostate and the concurrent edema, likely causing obstruction. As a result, I recommended placement of a urethral Gallagher catheter to assess for retention/overflow incontinence but also to give him a bit of peace from his urgency/frequency LUTS. Urethral Gallagher catheter placement procedure note: The patient was placed supine on the procedure table after being allowed to void into a urinal where he produced 150 cc of clear yellow urine. I then prepped and draped his genitalia in standard fashion using Betadine before applying a lidocaine Uro-Jet intraurethrally for local anesthesia. I then passed an 18 Faroese coud tip catheter via his urethra into his bladder with ease, and I instilled 10 cc of sterile water in the balloon. The catheter did drain only a minimal amount of urine, likely 20 to 30 cc maximum. I secured the catheter to a StatLock and left the bag to floor drainage. Diagnoses and recommendation: Acute prostatitis and gram-negative hermelinda sepsis complicating TRUS guided prostate biopsy 09/28/2023 with known fluoroquinolone resistant E. coli -Continue Zosyn pending cultures and sensitivities of the blood, but unlikely any appropriate oral alternatives, given the only orally sensitive agent was Augmentin, which would be insufficient to treat known sepsis in my estimation. As a result, he likely will require PICC line and completion of a 14-day course of IV antimicrobial. He likely could be switched to once daily IV cefepime based on prior sensitivities. Exacerbation of LUTS with urge incontinence secondary to post prostate biopsy acute prostatitis -Initiate Flomax 0.4 mg daily -Urethral Gallagher catheter placed, but no significant volume retained. As a result, I counseled patient that it was completely up to him whether he kept the catheter for the next 2 to 3 days, while the infection has a chance to resolve somewhat, and at that time it can be removed; or alternatively, if he finds having the catheter is more bothersome to him, it may be removed at any time at his discretion starting tomorrow morning. Elevated PSA with right apical prostate nodule post TRUS guided prostate biopsy -Follow-up as scheduled outpatient for pathologic results of the biopsy Allergies No Known Allergies Allergy (Unverified 10/03/23 02:40) Home Medications: Allopurinol 300 mg PO DAILY 10/03/23 Atorvastatin Calcium [Lipitor] 10 mg PO BEDTIME 10/03/23 Glimepiride 4 mg PO BID 10/03/23 Indapamide [Lozol] 2.5 mg PO DAILY 10/03/23 Pantoprazole [Protonix Tab] 40 mg PO DAILY 10/03/23 - Past Medical/Surgical History Diabetic: Yes - Social History Smoking Status: Unknown if ever smoked Alcohol use: No CD- Drugs: No Caffeine use: No Place of Residence: Home Physical Examination Temp Pulse Resp BP Pulse Ox 98.9 F 84 20 155/73 H 95 10/04/23 20:00 10/04/23 20:00 10/04/23 20:00 10/04/23 20:00 10/04/23 20:00 - Problems (1) Acute prostatitis Current Visit: Yes Status: Acute (2) Sepsis due to Escherichia coli (E. coli) Current Visit: Yes Status: Acute Qualifiers: Sepsis acute organ dysfunction status: unspecified Qualified Code(s): A41 .51 - Sepsis due to Escherichia coli [E. coli] (3) BPH loc w urin obs/LUTS Current Visit: Yes Status: Acute (4) Urge incontinence Current Visit: Yes Status: Acute (5) Elevated PSA Current Visit: Yes Status: Chronic (6) Prostate nodule Current Visit: Yes Status: Chronic Critical Care: No Time Spent Managing Pts care (In Minutes): 40
[2023-10-05 06:11] LABS: Hematocrit 38.4 % (39.6-49.0); MCV 86.5 fL (80-100); MPV 8.9 fL (7.6-11.3); Platelets 171 thou/uL (152-406); RBC Red Blood Cell Count 4.44 M/uL (4.33-5.43)
[2023-10-05 06:12] LABS: Potassium 2.7 mEq/L (3.5-5.1)
--- NOTE | 2023-10-05 07:29 | P.PN ---
Date of Service: 10/05/23 Subjective: Patient seen by Dr. Ordoñez last night and placed jonas reports catheter is painful, asking for it to be removed this morning otherwise no new / worsening problems per patient remains afebrile no BM yet ROS: 10 point ROS as noted above, otherwise negative Physical Exam: GEN: Alert, oriented, uncomfortable appearing HEENT: Normal conjunctiva, sclera anicteric CV: Regular rate and rhythm, no edema Pulm: Nonlabored respirations on room air, clear bilaterally ABD: Soft, nontender, nondistended Neuro: Normal speech, normal affect vitals reviewed Problem List: Acute prostatitis with GNR bacteremia Urinary incontinence JON, resolved NIDDM2 GERD hx of Gout Hypertension Constipation Acute prostatitis with GNR bacteremia Urinary incontinence Patient reports urinary incontinence, constipation, prostate pain since recent prostate biopsy procedure on 09/28/23 CT abdomen (10/03): diffuse bladder wall thickening with surrounding stranding, prostatomegaly with surrounding stranding, linearly oriented hypodensity in prostate likely secondary to prior intervention. Hepatic steatosis, cholelithiasis, colonic diverticulosis without diverticulitis, trace free fluid in the pelvis. Urology consulted - Dr. Ordoñez to evaluate Jonas placed 10/04 per urology. Patient reports catheter is very painful this morning okay to DC catheter per Dr. Ordoñez note. Dc jonas 10/05 secondary to pain. f/u outpatient for biopsy results / further work up Start flomax Per Dr. Ordoñez rectal swab culture prior to biopsy (09/28) noted E. coli resistant to fluoroquinolone/bactrim (sensitive to gentamicin/cef azolin/augmentin) Blood cx (10/04): 1/4 bottles growing GNR; ?possible contaminant urine cx (10/04): 2+ non-beta hemolytic strep Continue empiric zosyn (10/02-10/16) afebrile, CRP improving, leukocytosis improving Continue abx treatment for 2 weeks total. May need PICC line for IV abx pending final culture results ID consulted PRN analgesics / antiemetics JON, resolved improved with IV fluids Continue to monitor renal function NIDDM2 GERD hx of Gout Hypertension confirm home meds, restart as appropriate VTE: Lovenox Code: Full Dispo: Home, ~2 days Pending culture sensitivities, final abx choices
[2023-10-05] MEDS: KCL 20 MEQ/100 mL IVPB 20 MEQ/100 ML BAG IV SCH (08:57)
[2023-10-05] MEDS: TAMSULOSIN 0.4 MG SR CAP PO SCH (08:57)
[2023-10-05] MEDS: NA CHLORIDE 0.9% 500 ML IV ONE (08:57)
[2023-10-05] MEDS: ACETAMINOPHEN 325 MG TABLET PO PRN (09:03)
[2023-10-05 09:13] LABS: Blood Morphology Comment NOT SEEN (NOT SEEN); Platelet Estimate ADEQ
--- NOTE | 2023-10-05 10:01 | P.PN ---
Date of Service: 10/05/23 Chief Complaint: Frequency of urination, acute prostatitis. Subjective: Improving. In no apparent distress. No acute events overnight. + penile pain + jonas catheter discomfort Jonas catheter insertion by Dr. Ordoñez last night. Physical Examination Temp Pulse Resp BP Pulse Ox 97.8 F 75 16 161/77 H 96 10/05/23 08:20 10/05/23 08:20 10/05/23 08:20 10/05/23 08:20 10/05/23 08:20 General: Alert, In no apparent distress, Oriented x3 HEENT: Atraumatic, Normocephalic Respiratory: Clear to auscultation bilaterally, Normal air movement Cardiovascular: No edema, Regular rate/rhythm Gastrointestinal: Normal bowel sounds, Soft and benign Neurological: Normal speech, Normal tone : Jonas catheter Laboratory Data - Reviewed Microbiology Data - Reviewed Imagings Data: - CT abdomen Pelvis 10/02: "1. Diffuse bladder wall thickening with surrounding stranding, can be seen in setting of cystitis. Correlate with urinalysis. 2. Prostatomegaly with surrounding stranding, can be seen in setting of prostatitis. Linearly oriented hypodensity in the prostate likely secondary to prior intervention. Please correlate with surgical history. 3. Hepatic steatosis. 4. Cholelithiasis. 5. Colonic diverticulosis without diverticulitis. 6. Trace free fluid in the pelvis." Assessment and Plan Problem List Acute Prostatitis Gram-negative bacteremia Diabetes mellitus type II Gout Hypertension Urinary Incontinence Hematuria Acute Prostatitis Gram-negative bacteremia - Patient recently had prostate biopsy on 09/27/2023 - Currently on Zosyn (started 10/02) - Blood cultures 10/03: gram negative rods in 1 of 4 bottles - Urine culture 10/02: 2+ non-beta hemolytic strep - Urology following. See note for further recommendations. - Jonas catheter placed 10/04. - WBC curve trending down (26.4 -> 20.2 -> 18.5 -> 13.5) - Afebrile Recommendations - Continue Zosyn for now. Follow up with final blood and urine culture results. Will adjust antibiotics as appropriate. - Acute prostatitis: continue antibiotic therapy for at least 14 days (10/02- 10/16) - Monitor WBC and fever trends - Continue supportive care - strict blood glucose control Case discussed with Gertrude Munguia
--- NOTE | 2023-10-05 13:35 | EKG ---
Test Date: 2023-10-03 Test Time: 03:11:55 [address]: MEASUREMENT RESULTS: Intervals: Rate: 89 VT: 150 QRSD: 78 QT: 372 QTc: 452 [place]: P: 62 VT: 150 QRS: 5 T: 8 INTERPRETIVE STATEMENTS: Normal sinus rhythm Normal ECG Compared to ECG 03/01/2023 11:22:17 No significant changes Electronically Signed On 10-05-23 13:24:47 [employer] by Keenan Figueroa
[2023-10-05] MEDS: NA CHLORIDE 0.9% 250 ML IV ONE (16:35)
[2023-10-05] MEDS: DOCUSATE NA 100 MG CAP PO SCH (20:32)
[2023-10-06 03:24] LABS: Absolute Lymphocytes (CBC) 1.5 K/uL (0.7-4.9); Hematocrit 38.6 % (39.6-49.0); MCV 86.3 fL (80-100); MPV 8.9 fL (7.6-11.3); Platelets 218 thou/uL (152-406); RBC Red Blood Cell Count 4.47 M/uL (4.33-5.43)
[2023-10-06 03:37] LABS: Potassium 2.9 mEq/L (3.5-5.1)
[2023-10-06] MEDS: NA CHLORIDE 0.9% 500 ML ONE (04:18)
[2023-10-06] MEDS: KCL 20 MEQ/100 mL IVPB 20 MEQ/100 ML BAG IV SCH (04:21)
--- NOTE | 2023-10-06 07:34 | P.PN ---
Date of Service: 10/06/23 Subjective: Catheter removed yesterday due to pain/discomfort. No longer painful / discomforting. Feeling better today no BM yet, passing gas; ambulating no acute events overnight afebrile ROS: 10 point ROS as noted above, otherwise negative Physical Exam: GEN: Alert, oriented, NAD HEENT: Normal conjunctiva, sclera anicteric CV: Regular rate and rhythm, no edema Pulm: Nonlabored respirations on room air, clear bilaterally ABD: Soft, nontender, nondistended Neuro: Normal speech, normal affect vitals reviewed Problem List: Acute prostatitis with GNR bacteremia Urinary incontinence JON, resolved NIDDM2 GERD hx of Gout Hypertension Constipation Acute prostatitis with GNR bacteremia Urinary incontinence Patient reports urinary incontinence, constipation, prostate pain since recent prostate biopsy procedure on 09/28/23 CT abdomen (10/03): diffuse bladder wall thickening with surrounding stranding, prostatomegaly with surrounding stranding, linearly oriented hypodensity in prostate likely secondary to prior intervention. Hepatic steatosis, cholelithiasis, colonic diverticulosis without diverticulitis, trace free fluid in the pelvis. Urology consulted - Dr. Ordoñez to evaluate Jonas placed 10/04 per urology. jonas dc'd 10/05 secondary to pain. f/u outpatient for biopsy results / further work up continue flomax Per Dr. Ordoñez rectal swab culture prior to biopsy (09/28) noted E. coli re sistant to fluoroquinolone/bactrim (sensitive to gentamicin/cefazolin/augmentin) Blood cx (10/04): 1/4 bottles growing GNR; ?possible contaminant urine cx (10/04): 2+ non-beta hemolytic strep Continue empiric zosyn (10/02-10/16) afebrile, leuokcytosis 13.5 -> 16.3 Continue abx treatment for 2 weeks total. May need PICC line for IV abx pending final culture results ID following PRN analgesics / antiemetics JON, resolved improved with IV fluids, now off Continue to monitor renal function NIDDM2 GERD hx of Gout Hypertension confirm home meds, restart as appropriate VTE: Lovenox Code: Full Dispo: Home, ~1-2 days Pending culture sensitivities, final abx choices
--- NOTE | 2023-10-06 09:40 | P.PN ---
Date of Service: 10/06/23 Chief Complaint: Frequency of urination, acute prostatitis. Subjective: Patient in bed. No acute events overnight. Denies any new or worsening complaints. Reports feeling overall better today. Plan of care discussed with patient and at bedside. Physical Examination Temp Pulse Resp BP Pulse Ox 97.9 F 77 16 136/70 96 10/06/23 04:00 10/06/23 04:00 10/06/23 04:00 10/06/23 04:00 10/06/23 04:00 General: Alert, In no apparent distress, Oriented x3 HEENT: Atraumatic, Normocephalic Respiratory: Clear to auscultation bilaterally, Normal air movement Cardiovascular: Regular rate and rhythm. No edema. Gastrointestinal: Normal bowel sounds, Soft and benign. Non-tender. Non- distended. Neurological: Normal speech, Normal tone Laboratory Data - Reviewed Microbiology Data - Reviewed Imagings Data: - CT abdomen Pelvis 10/02: "1. Diffuse bladder wall thickening with surrounding stranding, can be seen in setting of cystitis. Correlate with urinalysis. 2. Prostatomegaly with surrounding stranding, can be seen in setting of prostatitis. Linearly oriented hypodensity in the prostate likely secondary to prior intervention. Please correlate with surgical history. 3. Hepatic steatosis. 4. Cholelithiasis. 5. Colonic diverticulosis without diverticulitis. 6. Trace free fluid in the pelvis." Assessment and Plan Problem List Acute Prostatitis Gram-negative bacteremia Diabetes mellitus type II Gout Hypertension Urinary Incontinence Hematuria Acute Prostatitis Gram-negative bacteremia - Patient recently had prostate biopsy on 09/27/2023 - Currently on Zosyn (started 10/02) - Blood cultures 10/03: gram negative rods in 1 of 4 bottles - Urine culture 10/02: Enterococcus faecalis - Urology following. See note for further recommendations. - Gallagher catheter placed 10/04. Removed 10/05 due to pain/discomfort. Leukocytosis Afebrile CRP downtrending Recommendations - Continue Zosyn for now. Awaiting final blood and urine culture results; adjust antibiotics as appropriate. - Acute prostatitis: continue antibiotic therapy for at least 14 days (10/02- 10/16). urine culture growing E.faecalis. Upon discharge, consider Augmentin PO x 14 days. Follow up with urology as outpatient in 1-2 weeks. - Monitor WBC and fever trends - Continue supportive care - strict blood glucose control Case discussed with Gertrude Munguia
[2023-10-06] MEDS: POTASSIUM CL SA 10 MEQ TAB PO ONE ×2 (10:14→20:56)
[2023-10-06] MEDS: POLYETHYL GLY 3350 17 GM/DOSE PO ONE (10:14)
[2023-10-06] MEDS ORDERED: GLUCAGON 1 MG/VIAL IM PRN (17:07)
[2023-10-06] MEDS ORDERED: D10W 250 ML BAG IV PRN (17:07)
[2023-10-06] MEDS: GLIMEPIRIDE 2 MG TABLET PO SCH (17:41)
[2023-10-06] MEDS: INSULIN REGULAR (HUMAN) 100 UNIT/ML SQ SCH (17:47)
[2023-10-07 06:29] LABS: Hematocrit 38.7 % (39.6-49.0); MCV 87.4 fL (80-100); MPV 8.3 fL (7.6-11.3); Platelets 256 thou/uL (152-406); RBC Red Blood Cell Count 4.42 M/uL (4.33-5.43)
[2023-10-07 06:52] LABS: Potassium 3.4 mEq/L (3.5-5.1)
[2023-10-07] MEDS: POTASSIUM CL SA 10 MEQ TAB PO ONE (08:53)
--- NOTE | 2023-10-07 10:32 | P.PN ---
Date of Service: 10/07/23 Subjective: Feeling better today BM yesterday with relief remains incontinent; slowly improving. Now feels like he has a little more time to make it to the restroom before having to go afebrile, denies any pains no nausea / vomiting ROS: 10 point ROS as noted above, otherwise negative Physical Exam: GEN: Alert, oriented, NAD HEENT: Normal conjunctiva, sclera anicteric CV: Regular rate and rhythm, no edema Pulm: Nonlabored respirations on room air, clear bilaterally ABD: Soft, nontender, nondistended Neuro: Normal speech, normal affect vitals reviewed Problem List: sepsis secondary to Acute prostatitis with GNR bacteremia Urinary incontinence JON, resolved NIDDM2 GERD hx of Gout Hypertension Constipation sepsis secondary to Acute prostatitis with GNR bacteremia Urinary incontinence Patient reports urinary incontinence, constipation, prostate pain since recent prostate biopsy procedure on 09/28/23 CT abdomen (10/03): diffuse bladder wall thickening with surrounding stranding, prostatomegaly with surrounding stranding, linearly oriented hypodensity in prostate likely secondary to prior intervention. Hepatic steatosis, cholelithiasis, colonic diverticulosis without diverticulitis, trace free fluid in the pelvis. Urology consulted - Dr. Ordoñez to evaluate Jonas placed 10/04 per urology. jonas dc'd 10/05 secondary to pain. f/u outpatient for biopsy results / further work up continue flomax Per Dr. Ordoñez rectal swab culture prior to biopsy (09/28) noted E. coli resistant to fluoroquinolone/bactrim (sensitive to gentamicin/cefazolin/augmentin) Blood cx (10/04): 1/4 bottles growing GNR; ?possible contaminant urine cx (10/04): Enterococcus Faecalis Continue empiric zosyn (10/02-10/16) afebrile, leuokcytosis improving, CRP improving Continue abx treatment for 2 weeks total. May need PICC line for IV abx pending final culture results; if PO, can use Augmentin ID following PRN analgesics / antiemetics JON, resolved improved with IV fluids, now off Continue to monitor renal function NIDDM2 GERD hx of Gout Hypertension confirm home meds, restart as appropriate VTE: Lovenox Code: Full Dispo: Home, ~1-2 days Pending culture sensitivities, final abx choices, leukocytosis resolves
[2023-10-08 07:13] LABS: Potassium 3.5 mEq/L (3.5-5.1)
[2023-10-08 07:14] LABS: Hematocrit 38.4 % (39.6-49.0); MCV 86.5 fL (80-100); MPV 8.4 fL (7.6-11.3); Platelets 290 thou/uL (152-406); RBC Red Blood Cell Count 4.43 M/uL (4.33-5.43)
--- NOTE | 2023-10-08 07:57 | P.PN ---
Date of Service: 10/08/23 Subjective: no change in bladder control. Not worse Denies pain. no nausea / vomiting afebrile, ambulating no new / worsening problems ROS: 10 point ROS as noted above, otherwise negative Physical Exam: GEN: Alert, oriented, NAD HEENT: Normal conjunctiva, sclera anicteric CV: Regular rate and rhythm, no edema Pulm: Nonlabored respirations on room air, clear bilaterally ABD: Soft, nontender, nondistended Neuro: Normal speech, normal affect vitals reviewed Problem List: sepsis secondary to Acute prostatitis with GNR bacteremia Urinary incontinence JON, resolved NIDDM2 GERD hx of Gout Hypertension Constipation sepsis secondary to Acute prostatitis with GNR bacteremia Urinary incontinence Patient reports urinary incontinence, constipation, prostate pain since recent prostate biopsy procedure on 09/28/23 CT abdomen (10/03): diffuse bladder wall thickening with surrounding stranding, prostatomegaly with surrounding stranding, linearly oriented hypodensity in prostate likely secondary to prior intervention. Hepatic steatosis, cholelithiasis, colonic diverticulosis without diverticulitis, trace free fluid in the pelvis. Urology consulted - Dr. Ordoñez to evaluate Jonas placed 10/04 per urology. jonas dc'd 10/05 secondary to pain. f/u outpatient for biopsy results / further work up continue flomax Per Dr. Ordoñez rectal swab culture prior to biopsy (09/28) noted E. coli resistant to fluoroquinolone/bactrim (sensitive to gentamicin/cefazolin/augmentin) Blood cx (10/04): 1/4 bottles gram stain: GNR; ?possible contaminant (2/) Blood gram stain now resulting 1/4 bottles with gram positive rods, previously documented as gram negative rods. urine cx (10/04): Enterococcus Faecalis Continue empiric zosyn (10/02-10/16) afebrile, leuokcytosis slight worse (2/4) Continue abx treatment for 2 weeks total. May need PICC line for IV abx pending final culture results; if PO, can use Augmentin ID following PRN analgesics / antiemetics JON, resolved improved with IV fluids, now off Continue to monitor renal function NIDDM2 GERD hx of Gout Hypertension confirm home meds, restart as appropriate VTE: Lovenox Code: Full Dispo: Home, ~1-2 days Pending culture sensitivities, final abx choice, leukocytosis improves
[2023-10-08] MEDS: POTASSIUM CL SA 10 MEQ TAB PO ONE (09:06)
--- NOTE | 2023-10-08 15:59 | P.PN ---
Subjective Date of Service: 10/08/23 Chief Complaint: Frequency of urination, acute prostatitis. Subjective: Improving 73-year-old gentleman with hypertension, DM 2, hypercholesterolemia, gout and GERD was seen in the urology clinic with elevated PSA and a right apical prostate nodule in the setting of an asymmetric prostate, right greater than left, and associated hypogonadism, hyperestrogenism associated with gynecomastia. He was started on anastrozole for the gynecomastia, and with improvement in his testosterone, his PSA, which was mildly elevated at 4.81 on 03/16/2023, went to 6.03 on 07/13/2023. Subsequent repeat of his PSA 09/19/2023 was 9.3. As a result, he underwent a biopsy of his prostate 09/28/2023. Rectal swab fluoroquinolone resistance testing was performed in preparation for the biopsy and revealed the presence of fluoroquinolone and Bactrim resistant E. coli, but it was sensitive to gentamicin and cefazolin. It was also sensitive to Augmentin, and the patient was prescribed Augmentin to start the day prior to the scheduled biopsy, but unfortunately, he was unable to gather the prescription until the morning of the biopsy when he took his first dose. As a result, I increased the antimicrobial prophylaxis at the time of the biopsy to include 4 to 5 mg/kg of gentamicin given 1 to 2 hours prior to the biopsy in addition to 1 g of cefazolin given immediately prior to the biopsy. The biopsy revealed a 109.76 g gland, PSA density 0.08. Diagnoses and recommendation: Acute prostatitis and gram-negative hermelinda sepsis complicating TRUS guided prostate biopsy 09/28/2023 with known fluoroquinolone resistant E. coli -Continue Zosyn pending cultures and sensitivities of the blood, but unlikely any appropriate oral alternatives, given the only orally sensitive agent was Augmentin, which would be insufficient to treat known sepsis in my estimation. As a result, he likely will require PICC line and completion of a 14-day course of IV antimicrobial. He likely could be switched to once daily IV cefepime based on prior sensitivities. Exacerbation of LUTS with urge incontinence secondary to post prostate biopsy acute prostatitis -Initiate Flomax 0.4 mg daily -Urethral Gallagher catheter placed, but no significant volume retained. As a result, I counseled patient that it was completely up to him whether he kept the catheter for the next 2 to 3 days, while the infection has a chance to resolve somewhat, and at that time it can be removed; or alternatively, if he finds having the catheter is more bothersome to him, it may be removed at any time at his discretion starting tomorrow morning. Elevated PSA with right apical prostate nodule post TRUS guided prostate biopsy -Follow-up as scheduled outpatient for pathologic results of the biopsy Interval history: He tolerated the urethral Gallagher catheter placed overnight but then desired to have it removed the next morning because of discomfort. Since that time, his urinary frequency and urge incontinence has resolved. He now complains of some terminal dysuria, which he says has been present the entirety of the time, but is now more apparent issue. He otherwise denies any particular pain, fever or chills. He has had a bowel movement since my last visit with him. Urine culture revealed 10-100 K Enterococcus faecalis sensitive to penicillin and fluoroquinolones Physical Examination - Vital Signs Temperature: 98.7 F Blood Pressure: 132/71 Pulse: 79 Respirations: 19 Pulse Ox (%): 79 - Physical Exam General: Alert, In no apparent distress, Oriented x3 HEENT: Atraumatic, Normocephalic, PERRLA, Mucous membr. moist/pink Respiratory: Normal air movement Rectal: No tenderness (ARDEN -irregular, but with no specific bogginess consistent with an abscess appreciable, and no significant tenderness) - Studies Microbiology Data (last 24 hrs): 10/03/23 00:11 Blood - Blood Aerobic Blood Culture - Final No growth in 5 days. 10/03/23 00:11 Blood - Blood Anaerobic Blood Culture - Final 10/03/23 00:11 Blood - Blood Gram Stain - Final 10/02/23 23:56 Blood - Blood Aerobic Blood Culture - Final No growth in 5 days. 10/02/23 23:56 Blood - Blood Anaerobic Blood Culture - Final No growth in 5 days. Assessment And Plan - Current Problems (Diagnosis) (1) Acute prostatitis Current Visit: Yes Status: Acute (2) Sepsis due to Escherichia coli (E. coli) Current Visit: Yes Status: Suspected Qualifiers: Sepsis acute organ dysfunction status: unspecified Qualified Code(s): A41.51 - Sepsis due to Escherichia coli [E. coli] (3) BPH loc w urin obs/LUTS Current Visit: Yes Status: Chronic (4) Urge incontinence Current Visit: Yes Status: Resolved (5) Elevated PSA Current Visit: Yes Status: Chronic (6) Prostate nodule Current Visit: Yes Status: Chronic - Plan Acute cystoprostatitis apparently secondary to Enterococcus faecalis with rising white count despite continued Zosyn -If continued rise in the WBC despite IV antimicrobial, recommend repeat pelvic CT without then with IV contrast to rule out prostatic abscess -Defer to ID on management of antimicrobials, though whether Augmentin for an additional 14 days alone would be sufficient versus if it needs to be in concert with another antimicrobial like a fluoroquinolone, remains to be determined Time Spent Managing PTS Care (In Minutes): 30
[2023-10-09] MEDS: ONDANSETRON 4 MG/2 ML VIAL IV PRN (09:04)
--- NOTE | 2023-10-09 09:44 | RAD REPORT ---
EXAM DESCRIPTION: CT - Abdomen Pelvis W/Wo Contrast - 10/09/2023 9:30 am CLINICAL HISTORY: Abdominal pain prostate abscess COMPARISON: October 02, 2023 TECHNIQUE: Computed axial tomography of the abdomen and pelvis was obtained. Unenhanced and enhanced images were taken. 100 cc Isovue 300 was administered intravenously. Oral contrast given All CT scans are performed using dose optimization technique as appropriate and may include automated exposure control or mA/KV adjustment according to patient size. FINDINGS: Cholelithiasis. Gallbladder wall not thickened. Fatty infiltration liver. Small low-density lesion the spleen nonspecific but probably benign Pancreas, adrenals and kidneys unremarkable Normal appendix. No evidence of diverticulitis. Marked enlargement of the prostate gland. 3.5 x 1.8 centimeter low-density area within the left aspec t of the prostate gland The bladder is decompressed. It contains an air bubble. IMPRESSION: 3.5 x 1.8 centimeter low-density area prostate gland probably an abscess
--- NOTE | 2023-10-09 14:18 | P.PN ---
Subjective Date of Service: 10/09/23 Chief Complaint: Frequency of urination, acute prostatitis. Patient complain of hesitancy and pain before urination. He denies increased urinary frequency. He denies hematuria. No recorded fever He denies loss of appetite. Physical Examination - Vital Signs Temperature: 97.4 F Blood Pressure: 145/72 Pulse: 76 Respirations: 18 Pulse Ox (%): 97 - Studies Microbiology Data (last 24 hrs): 10/03/23 00:11 Blood - Blood Aerobic Blood Culture - Final No growth in 5 days. 10/03/23 00:11 Blood - Blood Anaerobic Blood Culture - Final 10/03/23 00:11 Blood - Blood Gram Stain - Final Assessment And Plan - Plan Physical Exam: GEN: Alert, NAD HEENT: Normal conjunctiva, sclera anicteric CV: Regular rate and rhythm, no edema Pulm: Clear to auscultation bilaterally ABD: Soft, nontender, nondistended. Neuro: Normal speech, normal affect vitals reviewed Problem List: sepsis secondary to Acute prostatitis with GNR bacteremia Urinary incontinence JON, resolved NIDDM2 GERD hx of Gout Hypertension Constipation sepsis secondary to Acute prostatitis with GNR bacteremia Urinary incontinence Status post prostate biopsy procedure on 09/28/23 CT abdomen (10/03): diffuse bladder wall thickening with surrounding stranding, prostatomegaly with surrounding stranding, linearly oriented hypodensity in Patient seen by urology Dr. Ordoñez. Jonas placed 10/04 per urology. jonas dc'd 10/05 secondary to pain. Patient voiding without difficulty but has hesitancy. f/u outpatient for biopsy results. continue flomax. Per Dr. Ordoñez rectal swab culture prior to biopsy (09/28) noted E. coli resistant to fluoroquinolone/bactrim (sensitive to gentamicin/cefazolin/augmentin) Blood cx (10/04): 1/ bottles gram stain: GPR; possibly diphtheroid(skin contaminant) urine cx (10/04): Enterococcus Faecalis Leukocytosis is worse today. Slow response to antibiotics. Repeat pelvic CT shows prostate abscess. IV Zosyn changed to IV meropenem Dr. Ordoñez informed about the persistent abscess and recommend surgery tomorrow. N.p.o. at midnight today ID is following PRN analgesics / antiemetics JON, resolved Continue to monitor renal function . Indapamide is on hold. NIDDM2 Glimepiride is on hold. GERD hx of Gout Hypertension Continue home medications. Indapamide is on hold. VTE: Lovenox Code: Full Dispo: Home
--- NOTE | 2023-10-09 16:41 | P.PN ---
Date of Service: 10/09/23 Chief Complaint: Frequency of urination, acute prostatitis. Subjective: + urinary hesitancy. Denies dysuria or hematuria or frequency. In no apparent distress. No acute events overnight. Physical Examination Temp Pulse Resp BP Pulse Ox 97.4 F 76 18 145/72 H 97 10/09/23 14:21 10/09/23 14:21 10/09/23 14:21 10/09/23 14:21 10/09/23 14:21 General: Alert, In no apparent distress, Oriented x3 HEENT: Atraumatic, Normocephalic Respiratory: Clear to auscultation bilaterally, Normal air movement Cardiovascular: Regular rate and rhythm. No edema. Gastrointestinal: Normal bowel sounds, Soft and benign. Non-tender. Non- distended. Neurological: Normal speech, Normal tone Laboratory Data - Reviewed Microbiology Data - Reviewed Imagings Data: - CT abdomen Pelvis 10/02: "1. Diffuse bladder wall thickening with surrounding stranding, can be seen in setting of cystitis. Correlate with urinalysis. 2. Prostatomegaly with surrounding stranding, can be seen in setting of prostatitis. Linearly oriented hypodensity in the prostate likely secondary to prior intervention. Please correlate with surgical history. 3. Hepatic steatosis. 4. Cholelithiasis. 5. Colonic diverticulosis without diverticulitis. 6. Trace free fluid in the pelvis." Assessment and Plan Problem List Acute Prostatitis Gram-negative bacteremia Diabetes mellitus type II Gout Hypertension Urinary Incontinence Hematuria Acute Bacterial Prostatitis - Patient recently had prostate biopsy on 09/27/2023 - Currently on Zosyn (started 10/02) - Blood cultures 10/03: no growth to date - Urine culture 10/02: Enterococcus faecalis - Urology following. See note for further recommendations. - Gallagher catheter placed 10/04. Removed 10/05 due to pain/discomfort. Leukocytosis Afebrile CRP downtrending Recommendations - Acute bacterial prostatitis: Continue Zosyn for now. Leukocytosis worsening. CT pelvis pending, follow up with results. - Monitor WBC and fever trends - Continue supportive care - strict blood glucose control Case discussed with Dr. Carey N.
[2023-10-09] MEDS: Meropenem 1,000 MG in NA CHLORIDE 0.9% 100 ML IV SCH (16:57)
[2023-10-10 07:10] LABS: Absolute Lymphocytes (CBC) 2.2 K/uL (0.7-4.9); Lymphocytes % 19.4 % (15.3-44.8); MCV 88.1 fL (80-100); MPV 8.6 fL (7.6-11.3); Platelets 360 thou/uL (152-406); RBC Red Blood Cell Count 4.88 M/uL (4.33-5.43)
--- NOTE | 2023-10-10 11:09 | P.PN ---
Subjective Date of Service: 10/09/23 Chief Complaint: Frequency of urination, acute prostatitis. Subjective: Improving 73-year-old gentleman with hypertension, DM 2, hypercholesterolemia, gout and GERD was seen in the urology clinic with elevated PSA and a right apical prostate nodule in the setting of an asymmetric prostate, right greater than left, and associated hypogonadism, hyperestrogenism associated with gynecomastia. He was started on anastrozole for the gynecomastia, and with improvement in his testosterone, his PSA, which was mildly elevated at 4.81 on 03/16/2023, went to 6.03 on 07/13/2023. Subsequent repeat of his PSA 09/19/2023 was 9.3. As a result, he underwent a biopsy of his prostate 09/28/2023. Rectal swab fluoroquinolone resistance testing was performed in preparation for the biopsy and revealed the presence of fluoroquinolone and Bactrim resistant E. coli, but it was sensitive to gentamicin and cefazolin. It was also sensitive to Augmentin, and the patient was prescribed Augmentin to start the day prior to the scheduled biopsy, but unfortunately, he was unable to gather the prescription until the morning of the biopsy when he took his first dose. As a result, I increased the antimicrobial prophylaxis at the time of the biopsy to include 4 to 5 mg/kg of gentamicin given 1 to 2 hours prior to the biopsy in addition to 1 g of cefazolin given immediately prior to the biopsy. The biopsy revealed a 109.76 g gland, PSA density 0.08. Urine culture revealed 10-100 K Enterococcus faecalis sensitive to penicillin and fluoroquinolones -I reviewed the images of the CT scan in detail and both noncontrast, IV contrast, and delayed phase imaging. There indeed is an ovoid hypoechoic region of the prostate in the left anterior transition zone, potentially consistent with an abscess. Given his rising white count despite continued IV Zosyn Diagnoses and recommendation: Acute prostatitis with suspected left anterior prostatic abscess -Continue IV antimicrobials -Plan TUR of prostate abscess -I counseled the patient about the procedure in detail, and his lady friend over the phone with him. I explained the risk of the procedure to include bleeding requiring blood transfusions, infection, retrograde ejaculation, and erectile dysfunction. -N.p.o. 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 coli) Current Visit: Yes Status: Suspected Qualifiers: Sepsis acute organ dysfunction status: unspecified Qualified Code(s): A41.51 - Sepsis due to Escherichia coli [E. coli] (3) BPH loc w urin obs/LUTS Current Visit: Yes Status: Chronic (4) Urge incontinence Current Visit: Yes Status: Resolved (5) Elevated PSA Current Visit: Yes Status: Chronic (6) Prostate nodule Current Visit: Yes Status: Chronic - Plan Acute cystoprostatitis apparently secondary to Enterococcus faecalis with rising white count despite continued Zosyn -If continued rise in the WBC despite IV antimicrobial, recommend repeat pelvic CT without then with IV contrast to rule out prostatic abscess -Defer to ID on management of antimicrobials, though whether Augmentin for an additional 14 days alone would be sufficient versus if it needs to be in concert with another antimicrobial like a fluoroquinolone, remains to be determined
[2023-10-10] MEDS: D5 0.9 NS 1,000 ML IV SCH (13:02)
--- NOTE | 2023-10-10 14:48 | P.PN ---
Date of Service: 10/10/23 Chief Complaint: Frequency of urination, acute prostatitis. Subjective: + urinary incontinence. Otherwise no new or worsening complaints at this time. In no apparent distress. No acute events overnight. CT abdomen/pelvis yesterday revealing prostate abscess; Scheduled for I&D by Dr. Ordoñez today. Physical Examination Temp Pulse Resp BP Pulse Ox 97.8 F 87 20 128/75 97 10/10/23 11:09 10/10/23 11:09 10/10/23 11:10/10/23 11:10/10/23 11:09 General: Alert, In no apparent distress, Oriented x3 HEENT: Atraumatic, Normocephalic Respiratory: Clear to auscultation bilaterally, Normal air movement Cardiovascular: Regular rate and rhythm. No edema. Gastrointestinal: Normal bowel sounds, Soft and benign. Non-tender. Non- distended. Neurological: Normal speech, Normal tone Laboratory Data - Reviewed Microbiology Data - Reviewed Imagings Data: - CT abdomen Pelvis 10/02: "1. Diffuse bladder wall thickening with surrounding stranding, can be seen in setting of cystitis. Correlate with urinalysis. 2. Prostatomegaly with surrounding stranding, can be seen in setting of prostatitis. Linearly oriented hypodensity in the prostate likely secondary to prior intervention. Please correlate with surgical history. 3. Hepatic steatosis. 4. Cholelithiasis. 5. Colonic diverticulosis without diverticulitis. 6. Trace free fluid in the pelvis." Assessment and Plan Problem List Acute Prostatitis Gram-negative bacteremia Diabetes mellitus type II Gout Hypertension Urinary Incontinence Hematuria Acute Bacterial Prostatitis - Patient recently had prostate biopsy on 09/27/2023 - Blood cultures 10/03: no growth to date - Urine culture 10/02: Enterococcus faecalis - CRP downtrending - Gallagher catheter placed 10/04. Removed 10/05 due to pain/discomfort. - Urology following - CT abdomen pelvis 10/09: "3.5 x 1.8 centimeter low-density area prostate gland probably an abscess" - Zosyn (10/02-10/09) Leukocytosis Afebrile Recommendations - Acute bacterial prostatitis, now with abscess: zosyn was switched to meropnem on 10/09. Scheduled for abscess drainage by Dr. Ordoñez today. - Monitor WBC and fever trends - Continue supportive care - strict blood glucose control Case discussed with Gertrude Munguia
[2023-10-10] MEDS: NA CHLORIDE 0.9% 1,000 ML ONE (14:50)
--- NOTE | 2023-10-10 15:29 | P.PN ---
Subjective Date of Service: 10/10/23 Chief Complaint: Frequency of urination, acute prostatitis. Patient denies any complaint today. He denies hematuria. No recorded fever. He denies any perineal pain. Physical Examination - Vital Signs Temperature: 97.8 F Blood Pressure: 128/75 Pulse: 87 Respirations: 20 Pulse Ox (%): 97 Assessment And Plan - Plan Physical Exam: GEN: Alert, NAD HEENT: Normal conjunctiva, sclera anicteric CV: Regular rate and rhythm, no edema Pulm: Clear to auscultation bilaterally ABD: Soft, nontender, nondistended. Neuro: Normal speech, normal affect vitals reviewed Problem List: sepsis secondary to Acute prostatitis with GNR bacteremia Urinary incontinence JON, resolved NIDDM2 GERD hx of Gout Hypertension Constipation sepsis secondary to Acute prostatitis with GNR bacteremia Urinary incontinence Status post prostate biopsy procedure on 09/28/23 CT abdomen (10/03): diffuse bladder wall thickening with surrounding stranding, prostatomegaly with surrounding stranding, linearly oriented hypodensity in Patient seen by urology Dr. Ordoñez. Jonas placed 10/04 per urology. jonas dc'd 10/05 secondary to pain. Patient voiding without difficulty but has hesitancy. f/u outpatient for biopsy results. On flomax. Per Dr. Ordoñez rectal swab culture prior to biopsy (09/28) noted E. coli resistant to fluoroquinolone/bactrim (sensitive to gentamicin/cefazolin/augmentin) Blood cx (10/04): 1/ bottles gram stain: GPR; possibly diphtheroid(skin contaminant) urine cx (10/04): Enterococcus Faecalis Leukocytosis is worse today. Slow response to antibiotics. Repeat pelvic CT shows prostate abscess. IV Zosyn changed to IV meropenem. Leukocytosis almost resolved after changing IV Zosyn to meropenem. Patient scheduled for surgery today ID is following PRN analgesics / antiemetics JON, resolved Continue to monitor renal function . Indapamide is on hold. NIDDM2 Glimepiride is on hold. Insulin sliding scale. GERD hx of Gout Hypertension Indapamide is on hold. Continue other home medications. VTE: Lovenox Code: Full Dispo: Home
[2023-10-10] MEDS ORDERED: propofoL 200 MG/20 ML VIAL IV ONE (15:53)
[2023-10-10] MEDS ORDERED: ONDANSETRON 4 MG/2 ML VIAL ONE ×2 (15:53)
[2023-10-10] MEDS ORDERED: LIDOCAINE 1% MPF 5 ML VIAL ONE (15:54)
[2023-10-10] MEDS: FENTANYL CITR 100 MCG/2 ML ONE ×2 (15:59→18:10)
[2023-10-10] MEDS ORDERED: dexAMETHasone 10 MG/ML VIAL ONE (16:12)
[2023-10-10] MEDS ORDERED: EPHEDRINE SULF 50 MG/ML VIAL ONE (16:14)
[2023-10-10] MEDS ORDERED: ROCURONIUM 50 MG/5 ML VIAL IV ONE (16:33)
--- NOTE | 2023-10-10 17:47 | P.OP ---
Date of Service: 10/10/23 Preoperative diagnoses: Prostatic abscess Persistent leukocytosis despite IV antimicrobials Postoperative diagnoses: Prostatic abscess Cystoprostatitis Persistent leukocytosis despite IV antimicrobials Principal procedures: Urethral dilation using sounds Cystoscopy Transurethral resection/unroofing of prostate abscess, otf-TURP Indication for procedure: 73-year-old gentleman with hypertension, DM 2, hypercholesterolemia, gout and GERD was seen in the urology clinic with elevated PSA and a right apical prostate nodule in the setting of an asymmetric prostate, right greater than left, and associated hypogonadism, hyperestrogenism associated with gynecomastia. He was started on anastrozole for the gynecomastia, and with impr ovement in his testosterone, his PSA, which was mildly elevated at 4.81 on 03/16/2023, went to 6.03 on 07/13/2023. Subsequent repeat of his PSA 09/19/2023 was 9.3. As a result, he underwent a biopsy of his prostate 09/28/2023. Rectal swab fluoroquinolone resistance testing was performed in preparation for the biopsy and revealed the presence of fluoroquinolone and Bactrim resistant E. coli, but it was sensitive to gentamicin and cefazolin. It was also sensitive to Augmentin, and the patient was prescribed Augmentin to start the day prior to the scheduled biopsy, but unfortunately, he was unable to gather the prescription until the morning of the biopsy when he took his first dose. As a result, I increased the antimicrobial prophylaxis at the time of the biopsy to include 4 to 5 mg/kg of gentamicin given 1 to 2 hours prior to the biopsy in addition to 1 g of cefazolin given immediately prior to the biopsy. The biopsy revealed a 109.76 g gland, PSA density 0.08. He was subsequently admitted with SIRS, suspected sepsis, and urine culture revealed 10-100 K Enterococcus faecalis sensitive to penicillin and fluoroquinolones. With failure to continue with decline of his leukocytosis despite Zosyn IV, CT scan was completed and revealed an ovoid hypoechoic region of the prostate in the left anterior transition zone, potentially consistent with an abscess. 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 Procedure note: The patient was consented in the preoperative holding area before being transferred to the operative suite where general anesthesia was induced. He was advanced to meropenem IV antimicrobial therapy the night before with a decline in his white blood count, but given the likely persistence of the abscess, continued TUR unroofing of the abscess was recommended. As such, he was placed in the lithotomy position, padded and secured to the table appropriately, and his genitalia was prepped with Hibiclens before being draped in standard fashion. I then utilized urethral sounds to dilate the meatus and fossa navicularis to 28 Ukrainian. I then utilized the 26 Ukrainian bipolar resectoscope and a visual obturator to traverse the urethra and navigate beyond prostatic urethral obstruction in order to into the bladder. The bladder was decompressed of fluid and urine and surveyed. There was evidence of cystitis throughout. While there was interdigitating lateral lobar hypertrophy with an elevated median bar and intravesical projection that approximated the ureteral orifices, no distinct abscess was visualizable at this point. As a result, since the imaging clearly indicated the presence of the collection in the left Otf prostate transition zone anteriorly, I began resecting the left side of his prostate starting at the bladder neck keeping the ureteral orifices in vision. I continued the resection into the mid zone of the prostate and ultimately to the apex extending from the midline posteriorly to the midline anteriorly. I did encounter some areas of comedonecrosis and fibrinous exudate emanating from some of the glans/pockets of the prostate, which I took care to unroofed c ompletely and ensure all the material from within was expressed. I continued the resection, essentially performing a left Otf TURP in order to ensure complete resection and unroofing of any abscess that may be hidden deeper within the tissues of the prostate. The right side largely remained untouched except for efforts to gain hemostasis from where the loop may have contacted the mucosa of the right Otf prostate. I easily evacuated all prostate chips from within the bladder and the prostatic urethra. I assessed the right Otf prostate by using the scope to compress the glans and tissues to see if any fluctuant areas could be found, and once none were identified, I ensured the entirety of the prostate fossa was hemostatic. With the bladder decompressed and no fluid influx, once completely hemostatic, I retrograde filled his bladder with saline and removed the resectoscope. I then passed a 22 Ukrainian three-way Gallagher catheter into his bladder with ease, and I placed 30 cc of sterile water in the balloon. The drainage of fluid and urine was clear to light pink; so I irrigated using a 60 cc catheter tip syringe to ensure no prostate chips remained within his bladder, though I was careful to ensure they had all been removed visually before removing the resectoscope. Also, with irrigation there was no significant bleeding and the return of fluid remained minimally pink to clear. As a result, I connected the CBI tubing to the catheter and initiated slow to moderate drip CBI and the return of fluid was completely clear. I then took the patient out of the lithotomy position and placed the catheter to moderate traction on his left lower extremity. He was then transferred to a stretcher, and then transferred to the recovery room in good condition. Complications: None Discharge disposition: Wean CBI with normal saline to keep urine essentially light pink or better. Titrate CBI down just to prevent it from becoming bright pink or bloody. Effort to wean CBI overnight to off with plans to discontinue CBI tomorrow morning and remove the urethral Gallagher catheter giving the patient a voiding trial. Continue antimicrobial therapy and trend WBC, which may have a transient leukocytosis associated with the immediate postoperative state. Will also assess for any signs of fever, which would be a more potent indicator of infection. If persistently febrile or a transient increase leukocytosis expected fails to resolve over the next few days, may require repeat imaging to assess for the presence of an abscess in the right otf-prostate or upper tract abnormality, li ke pyelonephritis.
[2023-10-11] MEDS: LABETALOL 20 MG/4ML SYRINGE IV ONE (01:58)
[2023-10-11 06:13] LABS: RBC Red Blood Cell Count 4.43 M/uL (4.33-5.43)
[2023-10-11 06:14] LABS: Absolute Lymphocytes (CBC) 0.7 K/uL (0.7-4.9); Hematocrit 38.6 % (39.6-49.0); Lymphocytes % 5.3 % (15.3-44.8); MCV 87.1 fL (80-100); Platelets 335 thou/uL (152-406)
[2023-10-11 06:31] LABS: Potassium 4.6 mEq/L (3.5-5.1)
[2023-10-11 06:33] LABS: Phosphorus 1.5 mg/dL (2.5-4.9)
[2023-10-11] MEDS: POTASS/SODIUM PHOSPHATE 1 PKT POWD.PACK PO SCH (07:22)
[2023-10-11] MEDS: NACL 0.9% IRR SOLN 2,000 ML IRR ONE (07:26)
[2023-10-11] MEDS ORDERED: SODIUM CHL 0.9% IRR SOLN 2000 ML IRR SCH (08:00)
[2023-10-11 08:37] LABS: Blood Morphology Comment NOT SEEN (NOT SEEN); Platelet Estimate ADEQ; White Blood Cell Scan OK (OK)
--- NOTE | 2023-10-11 09:51 | P.PN ---
Date of Service: 10/11/23 Chief Complaint: Frequency of urination, acute prostatitis. Subjective: s/p Transurethral resection/unroofing of prostate abscess, zeenat-TURP by Dr. Ordoñez on 10/10. Tolerated procedure well. Patient in bed, in no apparent distress, breathing comfortably on room air. He denies any new or worsening complaints at this time. Physical Examination Temp Pulse Resp BP Pulse Ox 97.4 F 94 H 18 140/71 92 10/11/23 04:00 10/11/23 04:00 10/11/23 04:00 10/11/23 04:00 10/11/23 04:00 General: Alert, In no apparent distress, Oriented x3 HEENT: Atraumatic, Normocephalic Respiratory: Clear to auscultation bilaterally, Normal air movement Cardiovascular: Regular rate and rhythm. No edema. Gastrointestinal: Normal bowel sounds, Soft and benign. Non-tender. Non- distended. Neurological: Normal speech, Normal tone : jonas catheter draining light yellow urine Laboratory Data - Reviewed Microbiology Data - Reviewed Imagings Data: - CT abdomen Pelvis 10/02: "1. Diffuse bladder wall thickening with surrounding stranding, can be seen in setting of cystitis. Correlate with urinalysis. 2. Prostatomegaly with surrounding stranding, can be seen in setting of prostatitis. Linearly oriented hypodensity in the prostate likely secondary to prior intervention. Please correlate with surgical history. 3. Hepatic steatosis. 4. Cholelithiasis. 5. Colonic diverticulosis without diverticul itis. 6. Trace free fluid in the pelvis." - CT abdomen pelvis 10/09: "3.5 x 1.8 centimeter low-density area prostate gland probably an abscess" Assessment and Plan Problem List Acute Prostatitis Prostatic abscess Diabetes mellitus type II Gout Hypertension Urinary Incontinence Hematuria Acute Bacterial Prostatitis Prostatic Abscess - Patient recently had prostate biopsy on 09/27/2023 - Blood cultures 10/03: no growth to date - Urine culture 10/02: Enterococcus faecalis - Jonas catheter placed 10/04. Removed 10/05 due to pain/discomfort. - Urology following - CT abdomen pelvis 10/09: "3.5 x 1.8 centimeter low-density area prostate gland probably an abscess" - Previously on Zosyn (10/02-10/09) - Currently on Meropenem (started 10/09) - s/p Transurethral resection/unroofing of prostate abscess, zeenat-TURP on 10/[address] Ordoñez Leukocytosis Afebrile Recommendations - continue antibiotic therapy for 14-21 days. currently on meropenem, continue for now. - Monitor WBC and fever trends - Continue supportive care - strict blood glucose control Case discussed with Gertrude Munguia
--- NOTE | 2023-10-11 16:37 | P.PN ---
Subjective Date of Service: 10/11/23 Chief Complaint: Frequency of urination, acute prostatitis. Patient denies any complaint today. No issues overnight. No recorded fever. Physical Examination - Vital Signs Temperature: 97.4 F Blood Pressure: 140/71 Pulse: 94 Respirations: 18 Pulse Ox (%): 92 Assessment And Plan - Plan Physical Exam: GEN: Alert, NAD HEENT: Normal conjunctiva, sclera anicteric CV: Regular rate and rhythm, no edema Pulm: Clear to auscultation bilaterally ABD: Soft, nontender, nondistended. Neuro: Normal speech, normal affect vitals reviewed Diagnosis sepsis secondary to Acute prostatitis with GNR bacteremia Urinary incontinence JON, resolved NIDDM2 GERD hx of Gout Hypertension Constipation sepsis secondary to Acute prostatitis with GNR bacteremia Urinary incontinence Status post prostate biopsy procedure on 09/28/23 CT abdomen (10/03): diffuse bladder wall thickening with surrounding stranding, prostatomegaly with surrounding stranding, linearly oriented hypodensity in Patient seen by urology Dr. Ordoñez. Jonas placed 10/04 per urology. jonas dc'd 10/05 secondary to pain. Patient voiding without difficulty but has hesitancy. f/u outpatient for biopsy results. On flomax. Per Dr. Ordoñez rectal swab culture prior to biopsy (09/28) noted E. coli resistant to fluoroquinolone/bactrim (sensitive to gentamicin/cefazolin/augmentin) Blood cx (10/04): 1 bottles gram stain: GPR; possibly diphtheroid(skin contamin ant) urine cx (10/04): Enterococcus Faecalis Repeat pelvic CT shows prostate abscess. IV Zosyn changed to IV meropenem. Leukocytosis improved significantly after changing IV Zosyn to meropenem. Status post TURP with deroofing of the prostate abscess. CBI post surgery. Slight uptrend in leukocytosis likely related to stress from surgery Continue to monitor CBC ID is following Urology to follow PRN analgesics / antiemetics JON, resolved Continue to monitor renal function . Indapamide is on hold. NIDDM2 Glimepiride is on hold. Insulin sliding scale. GERD hx of Gout Hypertension Indapamide is on hold. Continue other home medications. VTE: Lovenox Code: Full Dispo: Home
[2023-10-12 05:46] LABS: Absolute Lymphocytes (CBC) 1.5 K/uL (0.7-4.9); Hematocrit 37.4 % (39.6-49.0); Lymphocytes % 15.6 % (15.3-44.8); MPV 8.1 fL (7.6-11.3); Platelets 314 thou/uL (152-406); RBC Red Blood Cell Count 4.25 M/uL (4.33-5.43)
[2023-10-12 06:14] LABS: Potassium 4.1 mEq/L (3.5-5.1)
[2023-10-12 06:54] VITALS: BP 145/69; TEMP 97.2
--- NOTE | 2023-10-12 09:44 | P.PN ---
Date of Service: 10/12/23 Chief Complaint: Frequency of urination, acute prostatitis. Subjective: Patient seen and examined in room. In no apparent distress. Denies any new or worsening complaints at this time. No acute events reported overnight. Physical Examination Temp Pulse Resp BP Pulse Ox 97.2 F 72 18 145/69 H 96 10/12/23 06:47 10/12/23 06:47 10/12/23 06:47 10/12/23 06:47 10/12/23 06:47 General: Alert, In no apparent distress, Oriented x3 HEENT: Atraumatic, Normocephalic Respiratory: Clear to auscultation bilaterally, Normal air movement Cardiovascular: Regular rate and rhythm. No edema. Gastrointestinal: Normal bowel sounds, Soft and benign. Non-tender. Non- distended. Neurological: Normal speech, Normal tone : jonas catheter draining light yellow urine Laboratory Data - Reviewed Microbiology Data - Reviewed Imagings Data: - CT abdomen Pelvis 10/02: "1. Diffuse bladder wall thickening with surrounding stranding, can be seen in setting of cystitis. Correlate with urinalysis. 2. Prostatomegaly with surrounding stranding, can be seen in setting of prostatitis. Linearly oriented hypodensity in the prostate likely secondary to prior intervention. Please correlate with surgical history. 3. Hepatic steatosis. 4. Cholelithiasis. 5. Colonic diverticulosis without diverticulitis. 6. Trace free fluid in the pelvis." - CT abdomen pelvis 10/09: "3.5 x 1.8 centimeter low-density area prostate gland probably an abscess" Assessment and Plan Problem List Acute Prostatitis Prostatic abscess Diabetes mellitus type II Gout Hypertension Urinary Incontinence Hematuria Acute Bacterial Prostatitis Prostatic Abscess - Patient recently had prostate biopsy on 09/27/2023 - Blood cultures 10/03: no growth to date - Urine culture 10/02: Enterococcus faecalis - Jonas catheter placed 10/04. Removed 10/05 due to pain/discomfort. - Urology following - CT abdomen pelvis 10/09: "3.5 x 1.8 centimeter low-density area prostate gland probably an abscess" - Previously on Zosyn (10/02-10/09) - Currently on Meropenem (started 10/09) - s/p Transurethral resection/unroofing of prostate abscess, zeenat-TURP on 10/[address] Ordoñez Leukocytosis improving (13.8 -> 9.3) Afebrile Recommendations - continue antibiotic therapy for 14 days. Currently on meropenem, continue for now. - Monitor WBC and fever trends - Continue supportive care - strict blood glucose control Case discussed with Gertrude Munguia
--- NOTE | 2023-10-12 09:49 | P.DS ---
Admission Date: 10/03/23 Discharge Date: 10/12/23 Disposition: ROUTINE DISCHARGE Discharge Condition: FAIR Reason for Admission: Frequency of urination, acute prostatitis. - Problems (1) Acute prostatitis Status: Acute (2) Enterococcus faecalis infection Status: Acute (3) JON (acute kidney injury) Status: Acute (4) Sepsis Status: Acute (5) Type II diabetes mellitus Status: Acute Brief History of Present Illness: 73-year-old male patient who recently had a prostate biopsy procedure by urologist who came to the ED with complaint of persistent urine leak. He reported inability to control his urinary flow with no overt episode of fever, chills, rigor, nausea, vomiting, malaise. He reports no poor appetite and because of his concerns and recent intervention in the prostate as per urology service he had imaging of the CT abdomen and pelvis done that revealed inflammation in the prostate concerning for acute prostatitis. No overt abscess was seen by original physician. He was admitted for inpatient care for IV antibiotic therapy and urology evaluation. He is admission white cell count was 26 K. Hospital Course: Patient presented with urinary incontinence, constipation, prostate pain since recent prostate biopsy procedure on 09/28/23. CT abdomen with findings consistent with acute prostatitis. Also incidentally noted Hepatic steatosis, cholelithiasis, colonic diverticulosis without diverticulitis, trace free fluid in the pelvis. Urology Dr. Cuello and Infectious disease- Dr. Carey's team evaluated patient. Patient was started on empiric zosyn and had some improvement of his symptoms. 1/4 bottles blood cultures grew GNR. Urine culture grew Enterococcus Faecalis. WBC trended up, repeat CT pelvis showed a small abscess, antibiotics changed to meropenem. Dr. Ordoñez performed TURP and de-roofed the abscess. WBC improved to normal, jonas maintained and bladder irrigation done briefly. Patient's urine has been clear since 1 day ago. Patient voided after the jonas catheter removal. Patient reevaluated by urologist Dr. Ordoñez and deemed stable for discharge. Dr. Ordoñez recommended to start flomax, continue antibiotics for 2 weeks total, and recommended close follow up in next 1-2 weeks for further work up / discussion of pathological biopsy results. Patient was feeling better, afebrile, and was deemed stable for discharge. Vital Signs/Physical Exam: Temp Pulse Resp BP Pulse Ox 97.2 F 72 18 145/69 H 96 02/08/24 06:47 10/12/23 06:47 10/12/23 06:47 10/12/23 06:47 10/12/23 06:47 General: Alert, In no apparent distress, Oriented x3 HEENT: Mucous membr. moist/pink Neck: Supple, JVD not distended Respiratory: Clear to auscultation bilaterally, Normal air movement Cardiovascular: No edema, Regular rate/rhythm, Normal S1 S2 Gastrointestinal: Normal bowel sounds, Soft and benign, Non-distended, No tenderness Musculoskeletal: No swelling Integumentary: No rashes, No cyanosis Neurological: Normal strength at 5/5 x4 extr Laboratory Data at Discharge: WBC 9.30 thou/uL (4.3-10.9) 10/12/23 05:32 Hgb 12.6 g/dL (13.6-17.9) L 10/12/23 05:32 Hct 37.4 % (39.6-49.0) L 10/12/23 05:32 Plt Count 314 thou/uL (152-406) 10/12/23 05:32 PT 13.9 SECONDS (9.5-12.5) H 10/02/23 23:56 INR 1.27 10/02/23 23:56 Sodium 136 mEq/L (136-145) 10/12/23 05:32 Potassium 4.1 mEq/L (3.5-5.1) 10/12/23 05:32 BUN 14 mg/dL (7-18) 10/12/23 05:32 Creatinine 0.89 mg/dL (0.70-1.30) 10/12/23 05:32 Glucose 131 mg/dL (74-106) H 10/12/23 05:32 Phosphorus 1.5 mg/dL (2.5-4.9) L* 10/11/23 05:58 Magnesium 2.0 mg/dL (1.6-2.4) 10/08/23 06:40 Total Bilirubin 2.0 mg/dL (0.2-1.0) H 10/02/23 20:57 AST 102 U/L (15-37) H 10/02/23 20:57 ALT 56 U/L (16-61) 10/02/23 20:57 Alkaline Phosphatase 100 U/L (45-117) 10/02/23 20:57 Lipase 37 U/L (13-75) 10/02/23 20:57 Home Medications: Allopurinol 300 mg PO DAILY 10/03/23 Atorvastatin Calcium [Lipitor*] 10 mg PO BEDTIME 10/03/23 Glimepiride 4 mg PO BID 10/03/23 Indapamide [Lozol] 2.5 mg PO DAILY 10/03/23 Pantoprazole [Protonix Tab*] 40 mg PO DAILY 10/03/23 Docusate [Colace Cap*] 100 mg PO BID #60 cap 10/12/23 Hydrocodone 5/APAP 325 [[place] 5/325*] 1 tab PO Q6H PRN #15 tab 10/12/23 Lactobacillus Acidophilus [Acidophilus Probiotic] 1 each PO TID #42 cap 10/12/23 Smz./Tmp. [Bactrim Ds 800 MG/160 MG] 1 tab PO BID #28 tab 10/12/23 Tamsulosin [Flomax*] 0.4 mg PO DAILY #30 cap 10/12/23 clindamycin HCL [Clindamycin HCl] 300 mg PO TID #42 cap 10/12/23 New Medications: Lactobacillus Acidophilus [Acidophilus Probiotic] 1 each PO TID #42 cap Smz./Tmp. [Bactrim Ds 800 MG/160 MG] 1 tab PO BID #28 tab clindamycin HCL [Clindamycin HCl] 300 mg PO TID #42 cap Docusate [Colace Cap*] 100 mg PO BID #60 cap Tamsulosin [Flomax*] 0.4 mg PO DAILY #30 cap Hydrocodone 5/APAP 325 [[place] 5/325*] 1 tab PO Q6H PRN #15 tab PRN Reason: Pain Scale 5-7 (Moderate) Physician Discharge Instructions: Patient presented with urinary incontinence, constipation, prostate pain since recent prostate biopsy procedure on 09/28/23. CT abdomen with findings consistent with acute prostatitis. Also incidentally noted Hepatic steatosis, cholelithiasis, colonic diverticulosis without diverticulitis, trace free fluid in the pelvis. Urology Dr. Cuello and Infectious disease- Dr. Carey's team evaluated patient. Patient was started on empiric zosyn and had some improvement of his symptoms. 1/4 bottles blood cultures grew GNR. Urine culture grew Enterococcus Faecalis. WBC trended up, repeat CT pelvis showed a small abscess, antibiotics changed to meropenem. Dr. Ordoñez performed TURP and de-roofed the abscess. WBC improved to normal, jonas maintained and bladder irrigation done briefly. Patient's urine has been clear since 1 day ago. Patient voided after the jonas catheter removal. Dr. Ordoñez recommended to start flomax, continue antibiotics for 2 weeks total, and recommended close follow up in next 1-2 weeks for further work up / discussion of pathological biopsy results. Patient was feeling better, afebrile, and was deemed stable for discharge. Medications: Flomax antibiotics Follow up: PCP 3-5 days Urology 1-2 weeks Followup: Evelyn Heard DO, DO [Primary Care Provider] - 1-2 Weeks (call to schedule an appointment.) Clarence Ordoñez [ACTIVE - CAN ADMIT] - 1-2 Weeks (Within 2 weeks) Time spent managing pt's care (in minutes): 42
[2023-10-12 10:00] VITALS: O2SAT 96
== END 2023-10-12 13:59 | disposition home or self-care (01) | DRG 665 ==
LOC: ER 19:59 → ERHOLD 10-03 01:44 → 4TH 10-03 10:56
PROVIDERS: ADMIT Internal Medicine Nephrology; ATTEND Internal Medicine
PROC: 0T9B70Z Drainage of Bladder with Drainage Device, Via Natural or Artificial Opening (ICD-10-PCS; 2023-10-03)
PROC: 02HV33Z Insertion of Infusion Device into Superior Vena Cava, Percutaneous Approach (ICD-10-PCS; 2023-10-03)
PROC: 0VT08ZZ Resection of Prostate, Via Natural or Artificial Opening Endoscopic (ICD-10-PCS; principal; 2023-10-10 15:00)
DX: N99.89 Other postprocedural complications and disorders of genitourinary system (principal); A41.51 Sepsis due to Escherichia coli [E. coli]; N17.9 Acute kidney failure, unspecified; N41.0 Acute prostatitis; N13.8 Other obstructive and reflux uropathy; N41.2 Abscess of prostate; I10 Essential (primary) hypertension; K59.00 Constipation, unspecified; E11.9 Type 2 diabetes mellitus without complications; M10.9 Gout, unspecified; K21.9 Gastro-esophageal reflux disease without esophagitis; E78.00 Pure hypercholesterolemia, unspecified; N40.1 Benign prostatic hyperplasia with lower urinary tract symptoms; N40.3 Nodular prostate with lower urinary tract symptoms; K76.0 Fatty (change of) liver, not elsewhere classified; N39.41 Urge incontinence; K57.30 Diverticulosis of large intestine without perforation or abscess without bleeding; K80.20 Calculus of gallbladder without cholecystitis without obstruction; R31.9 Hematuria, unspecified; B95.2 Enterococcus as the cause of diseases classified elsewhere; Z79.84 Long term (current) use of oral hypoglycemic drugs; Z79.899 Other long term (current) drug therapy; Y84.8 Other medical procedures as the cause of abnormal reaction of the patient, or of later complication, without mention of misadventure at the time of the procedure
CPT/HCPCS: 36415; 74177; 74178; 80048; 80053; 81001; 82550; 82947; 83605; 83690; 83735; 84100; 84132; 84145; 84484; 85025; 85027; 85610; 86140; 87040; 87077; 87086; 87088; 87186; 87205; 88305; 93005; J1100; J1650; J1815; J2001; J2185; J2270; J2405; J2543; J2704; J3010; J3480; J7030; J7040; J7042; J7050; Q9967

== ENCOUNTER 2024-08-26 09:24 | Emergency (ER) | payer OTHER ==
[2024-08-26 10:16] LABS: Absolute Lymphocytes (CBC) 1.2 K/uL (0.7-4.9); Absolute Monocytes 0.4 K/uL (0.1-1.3); Absolute Neutrophil 4.2 K/uL (1.8-8.0); Basophils % 0.1 % (0-1.3); Eosinophils % 0.3 % (0-4.4); Hematocrit 44.3 % (39.6-49.0); MCH 29.4 pg (27.0-35.0); MCHC 33.8 g/dL (32.0-36.0); MPV 9.1 fL (7.6-11.3); Monocytes % 6.5 % (3.3-12.3); Neutrophils % 72.1 % (41.7-73.7); Nucleated Red Blood Cells % 0.2 % (0-0); Platelets 150 thou/uL (152-406); RBC Red Blood Cell Count 5.09 M/uL (4.33-5.43); Red Cell Distribution Width 13.9 % (12.1-15.2)
[2024-08-26 10:20] LABS: PT Prothrombin Time 12.2 SECONDS (9.4-12.5); Protime INR 1.09
--- NOTE | 2024-08-26 10:34 | RAD REPORT ---
EXAMINATION: ONE VIEW CHEST XR CLINICAL INDICATION: Male, 74 years old.,COUGH TECHNIQUE: Frontal chest projection is submitted. Examination is limited by patient positioning and t echnique. COMPARISON: 03/01/2023 through 02/25/2011. FINDINGS: The lungs are well inflated and clear. No pneumothorax or sizable effusion. The heart is normal in s ize. Mediastinal contours are unremarkable. IMPRESSION: No acute intrathoracic abnormalities.
[2024-08-26 10:38] LABS: Albumin 3.5 g/dL (3.4-5.0); Albumin/Globulin Ratio 1.1 (1.1-1.8); Anion Gap 9.9 mEq/L (5.0-15.0); Bilirubin Direct 0.3 mg/dL (0-0.2); Bilirubin Total 1.3 mg/dL (0.2-1.0); Globulin 3.3 g/dL (2.3-3.5); Magnesium 1.5 mg/dL (1.6-2.4); Potassium 2.9 mEq/L (3.5-5.1); Protein, Total 6.8 g/dL (6.4-8.2); Troponin High Sensitivity 5.9 pg/mL (<58.9)
[2024-08-26] MEDS ORDERED: NA CHLORIDE 0.9% 1,000 ML ONE (10:54)
--- NOTE | 2024-08-26 11:05 | EKG ---
Test Date: 2024-08-26 Test Time: 09:50:40 Water Resources Engineer: AM MEASUREMENT RESULTS: Intervals: Rate: 101 MA: 148 QRSD: 84 QT: 346 QTc: 448 [place]: P: 53 MA: 148 QRS: -8 T: 36 INTERPRETIVE STATEMENTS: Sinus tachycardia with occasional premature ventricular complexes Otherwise normal ECG Compared to ECG 10/03/2023 03:11:55 Ventricular premature complex(es) now present Sinus rhythm no longer present Electronically Signed On 08-26-24 11:04:51 BUILDING CONSTRUCTION SUPERVISOR by Tyler Lazar
[2024-08-26] MEDS ORDERED: BISACODYL 10 MG RECTAL SUPP ONE (11:53)
[2024-08-26] MEDS ORDERED: POTASSIUM 25 MEQ EFFERV TAB ONE ×2 (11:53→12:31)
[2024-08-26] MEDS ORDERED: Magnesium Sulfate 2gm IVPB 2 G/50 ML BAG IV ONE (11:53)
[2024-08-26 12:09] LABS: Specific Gravity 1.009 (1.005-1.030); Sqamous Epithelial None Seen /HPF (None Seen); Urine Bacteria None Seen /HPF (<20); Urine Bilirubin NEGATIVE (Negative); Urine Blood Negative (Negative); Urine Clarity Clear (Clear); Urine Color Colorless (Yellow); Urine Culture Reflex Order NOT NEEDED; Urine Glucose 1+ (Negative); Urine Ketones NEGATIVE (Negative); Urine Microscopic Reflex YN ORDER UMIC; Urine Nitrite NEGATIVE (Negative); Urine Protein NEGATIVE (Negative); Urine RBC None Seen /HPF (None Seen); Urine Urobilinogen Normal (Normal); Urine WBC <5 /HPF (<5)
--- NOTE | 2024-08-26 12:21 | ER ---
Nurse's Notes [facility] Name: Dax Steven Age: 74 yrs Sex: Male : 1950 Arrival Date: 08/26/2024 Time: 09:24 Bed 7 Private MD: Diagnosis: Hypokalemia;Hypomagnesemia;Constipation;Weakness Presentation: 08/26 09:47 Chief complaint: Patient states: "I just don't feel right. I'm not having any pain or kc6 anything but my bowels aren't moving like they should and things just aren't right." pt denies n/v/d, reports constipation. denies pain or flu like symptoms. Coronavirus screen: At this time, the client does not indicate any symptoms associated with coronavirus-19. Ebola Screen: No symptoms or risks identified at this time. Initial Sepsis Screen: Does the patient meet any 2 criteria? HR > 90 bpm. Does the patient have a suspected source of infection? No. Patient's initial sepsis screen is negative. Risk Assessment: Do you want to hurt yourself or someone else? Patient reports no desire to harm self or others. Onset of symptoms was August 26, 2024. 09:47 Method Of Arrival: Ambulatory [facility] 09:47 Acuity: [facility] 4 kc6 Historical: - Allergies: 09:49 No Known Allergies; kc6 - PMHx: 09:49 diabetes mellitus; Gastric Reflux; Gout; Hypercholesterolemia; Hypertensive disorder; kc6 - PSHx: 09:49 None; kc6 - Immunization history:: Adult Immunizations up to date. - Infectious Disease History:: Denies. - Social history:: Smoking status: Patient denies any tobacco usage or history of. - Family history:: not pertinent. Screenin:16 [facility] ED Fall Risk Assessment (Adult) History of falling in the last 3 months, ap3 including since admission No falls in past 3 months (0 pts) Confusion or Disorientation No (0 pts) Intoxicated or Sedated No (0 pts) Impaired Gait No (0 pts) Mobility Assist Device Used No (0 pt) Altered Elimination No (0 pt) Score/Fall Risk Level 0 - 2 = Low Risk Oriented to surroundings, Maintained a safe environment, Educated pt \\T\\ family on fall prevention, incl call for assistance when getting out of bed, Assessed \\T\\ reinforced patient's understanding of fall precautions, Hourly rounding (assess needs \\T\\ fall precautionary measures) done, Used ambulatory aids as needed (educated on \\T\\ assisted with), Used gait belt as appropriate. Abuse screen: Denies threats or abuse. Nutritional screening: No deficits noted. Tuberculosis screening: No symptoms or risk factors identified. Assessment: 11:16 General: Appears in no apparent distress. Behavior is calm, cooperative, appropriate ap3 for age. Pain: Denies pain. Neuro: Level of Consciousness is awake, alert, obeys commands, Oriented to person, place, time, situation. Cardiovascular: Patient's skin is warm and dry. Respiratory: Airway is patent Respiratory effort is even, unlabored, Respiratory pattern is regular, symmetrical. 12:02 Reassessment: Patient and/or family updated on plan of care and expected duration. Pain ap3 level reassessed. Patient is alert, oriented x 3, equal unlabored respirations, skin warm/dry/pink. 12:27 General: awaiting magnesium to complete prior to departure. ap3 12:36 Reassessment: Patient and/or family updated on plan of care and expected duration. Pain ap3 level reassessed. Patient is alert, oriented x 3, equal unlabored respirations, skin warm/dry/pink. Patient states symptoms have improved. Vital Signs: 09:47 BP 149 / 90; Pulse 107; Resp 16 S; Temp 99(O); Pulse Ox 99% on R/A; Weight 93.89 kg kc6 (M); Height 6 ft. 2 in. (R); Pain 0/10; 10:30 BP 142 / 84; Pulse 93; Resp 17; Pulse Ox 96% on R/A; ap3 11:16 BP 151 / 54; Pulse 90; Resp 17; Pulse Ox 98% on R/A; ap3 12:36 BP 144 / 81; Pulse 89; Resp 17; Pulse Ox 98% on R/A; ap3 09:47 Body Mass Index 26.58 (93.89 kg, 187.96 cm) 6 09:47 Pain Scale: Adult [facility] NIH Stroke Scale Scores: 11:26 NIHSS Score: 0 [facility] ED Course: 09:31 Patient arrived in ED. im 09:32 Clifton Padron MD is Attending Physician. [facility] 09:49 Triage completed. kc6 09:49 Arm band placed on. kc6 10:05 XRAY Chest (1 view) In Process Unspecified. EDMS 10:13 Warm blanket given. Verbal reassurance given. am7 10:13 Inserted saline lock: 20 gauge in right antecubital area, using aseptic technique. am7 Blood collected. Flushed with 10 mL NS. 10:14 EKG done, by ED staff, reviewed by Clifton Padron MD. am7 10:53 Flakita Bustos, RN is Primary Nurse. ap3 11:17 Patient has correct armband on for positive identification. Bed in low position. Call ap3 light in reach. Side rails up X2. 11:17 No provider procedures requiring assistance completed. ap3 13:04 Provided Education on: discharge instructions. ap3 13:04 IV discontinued, intact, bleeding controlled, No redness/swelling at site. Pressure ap3 dressing applied. Administered Medications: 10:56 Drug: NS 0.9% IV 1000 ml IV at 1000 ml once; to be given as a bolus over 60 minutes ap3 Route: IV; Rate: 1000 ml; Site: right antecubital; 12:35 Follow up: IV Status: Completed infusion; IV Intake: 1000ml ap3 11:50 Drug: Potassium PO Effervescent Tablet 50 mEq PO once; dissolve in 4 ounces of water or ap3 juice at noon Route: PO; 13:04 Follow up: Response: No adverse reaction ap3 12:01 Drug: Magnesium Sulfate IVPB 2 grams IVPB once over 1 hrs Route: IVPB; Infused Over: 1 ap3 hrs; Site: right antecubital; 13:04 Follow up: IV Status: Completed infusion ap3 12:01 Not Given (Patient Refused): dulcolaxsuppository 10 mg MN once ap3 12:45 Drug: Potassium PO Effervescent Tablet 50 mEq PO once; dissolve in 4 ounces of water or ap3 juice Route: PO; 13:04 Follow up: Response: No adverse reaction ap3 Medication: 11:17 VIS not applicable for this client. ap3 Intake: 12:35 IV: 1000ml; Total: 1000ml. ap3 Outcome: 12:20 Discharge ordered by . chel 13:03 Discharged to home ambulatory, ap3 13:03 Condition: good 13:03 Discharge instructions given to patient, Instructed on discharge instructions, follow up and referral plans. medication usage, Demonstrated understanding of instructions, follow-up care, medications, Prescriptions given X 4, 13:05 Patient left the ED. ap3 NIH Stroke Scale - NIH Stroke Score Date: 08/26/2024 Time: 11:26 Total Score = 0 10. Dysarthria (speech clarity - read or repeat words) - 0(Normal) 11. Extinction and Inattention (visual/tactile/auditory/spatial/personal) - 0(No abnormality) 1a. Level of Consciousness (LOC) - 0(Alert) 1b. Level of Consciousness (LOC) (Month \\T\\ Age) - 0(Both) 1c. LOC Commands (Open \\T\\ Closes Eyes/Apple Turner) - 0(Both) 2. Best Gaze (Lateral Gaze Paresis) - 0(Normal) 3. Visual Field Loss - 0(No visual loss) 4. Facial Palsy - 0(Normal) 5a. Left Arm: Motor (10-second hold) - 0(No drift) 5b. Right Arm: Motor (10-second hold) - 0(No drift) 6a. Left Leg: Motor (5-second hold - always test supine) - 0(No drift) 6b. Right Leg: Motor (5-second hold - always test supine) - 0(No drift) 7. Limb Ataxia (finger/nose \\T\\ heel/mora - test with eyes open) - 0(Absent) 8. Sensory Loss (pinprick arms/legs/face) - 0(Normal) 9. Best Language: Aphasia (description/naming/reading) - 0(No aphasia) Initials: chel Signatures: Dispatcher [employer] EDClifton Tang MD MD cha Prokisch, Amanda RN RN ap3 Diana Vega RN RN kc6 Cheryl Newell Abigail am7 Corrections: (The following items were deleted from the chart) 13:05 12:36 BP 144 / 81; Pulse 89bpm; Resp 87bpm; Pulse Ox 98% RA; ap3 ap3
--- NOTE | 2024-08-26 12:21 | EDPHYS ---
Physician Documentation [facility] Name: Dax Steven Age: 74 yrs Sex: Male : 1950 Arrival Date: 08/26/2024 Time: 09:24 Bed 7 Private MD: MARIO ALBERTO Physician Clifton Padron HPI: 08/26 11:23 This 74 yrs old Black Male presents to ER via Ambulatory with complaints of Doesn't chel Feel Right. 11:23 The patient presents with abdominal pain in the lower abdomen, abdominal distention in chel the upper abdomen, in the lower abdomen. Onset: The symptoms/episode began/occurred 2 day(s) ago. weak, non focal. Onset: The symptoms/episode began/occurred 1 day(s) ago. Associated signs and symptoms: Pertinent positives: constipation. Modifying factors: The symptoms are alleviated by nothing, the symptoms are aggravated by nothing. Severity of symptoms: At their worst the symptoms were mild in the emergency department the symptoms are unchanged. Historical: - Allergies: 09:49 No Known Allergies; kc6 - PMHx: 09:49 diabetes mellitus; Gastric Reflux; Gout; Hypercholesterolemia; Hypertensive disorder; kc6 - PSHx: 09:49 None; kc6 - Immunization history:: Adult Immunizations up to date. - Infectious Disease History:: Denies. - Social history:: Smoking status: Patient denies any tobacco usage or history of. - Family history:: not pertinent. ROS: 11:23 Constitutional: Negative for fever, chills, and weight loss, Eyes: Negative for injury, chel pain, redness, and discharge, ENT: Negative for injury, pain, and discharge, Neck: Negative for injury, pain, and swelling, Cardiovascular: Negative for chest pain, palpitations, and edema, Respiratory: Negative for shortness of breath, cough, wheezing, and pleuritic chest pain, Abdomen/GI: Negative for abdominal pain, nausea, vomiting, diarrhea, and constipation, Back: Negative for injury and pain, : Negative for injury, bleeding, discharge, and swelling, MS/Extremity: Negative for injury and deformity, Skin: Negative for injury, rash, and discoloration, Neuro: Negative for headache, weakness, numbness, tingling, and seizure, Psych: Negative for depression, anxiety, suicide ideation, homicidal ideation, and hallucinations, Allergy/Immunology: Negative for hives, rash, and allergies, Endocrine: Negative for neck swelling, polydipsia, polyuria, polyphagia, and marked weight changes, Hematologic/Lymphatic: Negative for swollen nodes, abnormal bleeding, and unusual bruising, 11:23 Abdomen/GI: Positive for constipation, Exam: 11:25 Constitutional: This is a well developed, well nourished patient who is awake, alert, chel and in no acute distress. Head/Face: Normocephalic, atraumatic. Eyes: Pupils equal round and reactive to light, extra-ocular motions intact. Lids and lashes normal. Conjunctiva and sclera are non-icteric and not injected. Cornea within normal limits. Periorbital areas with no swelling, redness, or edema. ENT: Nares patent. No nasal discharge, no septal abnormalities noted. Tympanic membranes are normal and external auditory canals are clear. Oropharynx with no redness, swelling, or masses, exudates, or evidence of obstruction, uvula midline. Mucous membranes moist. Neck: Trachea midline, no thyromegaly or masses palpated, and no cervical lymphadenopathy. Supple, full range of motion without nuchal rigidity, or vertebral point tenderness. No Meningismus. Chest/axilla: Normal chest wall appearance and motion. Nontender with no deformity. No lesions are appreciated. Cardiovascular: Regular rate and rhythm with a normal S1 and S2. No gallops, murmurs, or rubs. Normal PMI, no JVD. No pulse deficits. Respiratory: Lungs have equal breath sounds bilaterally, clear to auscultation and percussion. No rales, rhonchi or wheezes noted. No increased work of breathing, no retractions or nasal flaring. Abdomen/GI: Soft, non-tender, with normal bowel sounds. No distension or tympany. No guarding or rebound. No evidence of tenderness throughout. Back: No spinal tenderness. No costovertebral tenderness. Full range of motion. Male : Normal genitalia with no discharge or lesions. Skin: Warm, dry with normal turgor. Normal color with no rashes, no lesions, and no evidence of cellulitis. MS/ Extremity: Pulses equal, no cyanosis. Neurovascular intact. Full, normal range of motion., bilateral aka Neuro: Awake and alert, GCS 15, oriented to person, place, time, and situation. Cranial nerves II-XII grossly intact. Motor strength 5/5 in all extremities. Sensory grossly intact. Cerebellar exam normal. Normal gait. Psych: Awake, alert, with orientation to person, place and time. Behavior, mood, and affect are within normal limits. 11:25 ECG was reviewed by the Attending Physician. 11:26 Musculoskeletal/extremity: Circulation is intact in all extremities. Sensation intact. chel Compartment Syndrome exam of affected extremity: is normal. DVT Exam: No signs of deep vein thrombosis. no pain, no swelling, no tenderness, negative Homans' sign noted on exam, no appreciated bluish discoloration, no erythema, no increased warmth, Vital Signs: 09:47 BP 149 / 90; Pulse 107; Resp 16 S; Temp 99(O); Pulse Ox 99% on R/A; Weight 93.89 kg kc6 (M); Height 6 ft. 2 in. (R); Pain 0/10; 10:30 BP 142 / 84; Pulse 93; Resp 17; Pulse Ox 96% on R/A; ap3 11:16 BP 151 / 54; Pulse 90; Resp 17; Pulse Ox 98% on R/A; ap3 12:36 BP 144 / 81; Pulse 89; Resp 17; Pulse Ox 98% on R/A; ap3 09:47 Body Mass Index 26.58 (93.89 kg, 187.96 cm) [facility] 09:47 Pain Scale: Adult kc6 NIH Stroke Scale Scores: 11:26 NIHSS Score: 0 chel MDM: 09:32 Medical Screening Exam initiated [facility] 11:27 Differential Diagnosis altered mental status, sepsis, flu. Differential diagnosis: chel bowel obstruction, Cholelithiasis, diverticulitis, gastritis, non-specific abd pain, pancreatitis, Peptic Ulcer Disease, Prostatitis, Pyelonephritis, Ureterolithiasis, urinary tract infection. Data reviewed: vital signs, nurses notes, lab test result(s), EKG, radiologic studies, plain films. Consideration of Admission/Observation Escalation of care including admission/observation considered. I considered the following discharge prescriptions or medication management in the emergency department Medications were administered in the Emergency Department. See MAR. Independent interpretation of the following test(s) in the Emergency Department EKG: See my EKG interpretation above. Test considered but Not performed: CT: no ct head, abd. Care significantly affected by the following chronic conditions: Diabetes, Hypertension, Obesity, gout, high chlesterol. 08/26 09:33 Order name: Basic Metabolic Panel; Complete Time: 11:17 [facility] 08/26 09:33 Order name: CBC with Diff; Complete Time: 11:17 [facility] 08/26 09:33 Order name: LFT's; Complete Time: 11:17 [facility] 08/26 09:33 Order name: Magnesium; Complete Time: 11:17 [facility] 08/26 09:33 Order name: NT PRO-BNP; Complete Time: 11: [facility] 08/26 09:33 Order name: PT-INR; Complete Time: 11:17 [facility] 08/26 09:33 Order name: Troponin HS; Complete Time: 11: [facility] 08/26 09:33 Order name: Lipase; Complete Time: 11: [facility] 08/26 09:33 Order name: Urinalysis w/ reflexes; Complete Time: 12:20 [facility] 08/26 09:33 Order name: XRAY Chest (1 view); Complete Time: 11: [facility] 08/26 09:33 Order name: Cardiac monitoring; Complete Time: 10:13 [facility] 08/26 09:33 Order name: EKG - Nurse/Tech; Complete Time: 09:52 [facility] 08/26 09:33 Order name: IV Saline Lock; Complete Time: 10:13 [facility] 08/26 09:33 Order name: Labs collected and sent; Complete Time: 10:13 [facility] 08/26 09:33 Order name: O2 Per Protocol; Complete Time: 10:13 [facility] 08/26 09:33 Order name: O2 Sat Monitoring; Complete Time: 10:13 [facility] 08/26 11:19 Order name: PO challenge: 2 oj's; Complete Time: 12:02 [facility] EC:25 Rate is 101 beats/min. Rhythm is regular. QRS [place] is Normal. [place] interval is normal. [facility] QRS interval is normal. QT interval is normal. No Q waves. T waves are Normal. No ST changes noted. Clinical impression: Sinus tachycardia and No evidence of ischemia. Interpreted by me. Reviewed by me. Administered Medications: 10:56 Drug: NS 0.9% IV 1000 ml IV at 1000 ml once; to be given as a bolus over 60 minutes ap3 Route: IV; Rate: 1000 ml; Site: right antecubital; 12:35 Follow up: IV Status: Completed infusion; IV Intake: 1000ml ap3 11:50 Drug: Potassium PO Effervescent Tablet 50 mEq PO once; dissolve in 4 ounces of water or ap3 juice at noon Route: PO; 13:04 Follow up: Response: No adverse reaction ap3 12:01 Drug: Magnesium Sulfate IVPB 2 grams IVPB once over 1 hrs Route: IVPB; Infused Over: 1 ap3 hrs; Site: right antecubital; 13:04 Follow up: IV Status: Completed infusion ap3 12:01 Not Given (Patient Refused): dulcolaxsuppository 10 mg [place] once ap3 12:45 Drug: Potassium PO Effervescent Tablet 50 mEq PO once; dissolve in 4 ounces of water or ap3 juice Route: PO; 13:04 Follow up: Response: No adverse reaction ap3 Disposition Summary: 08/26/24 12:20 Discharge Ordered Notes: Location: Home chel Problem: new chel Symptoms: have improved chel Condition: Stable chel Diagnosis - Hypokalemia chel - Hypomagnesemia chel - Constipation chel - Weakness chel Followup: chel - With: Private Physician - When: 2 - 3 days - Reason: Recheck today's complaints, Continuance of care, Re-evaluation by your physician Discharge Instructions: - Discharge Summary Sheet chel - Constipation, Adult chel - Potassium Content of Foods chel - Hypomagnesemia chel - Weakness chel - Fatigue chel - Constipation, Adult, [id number]-[id number] chel - Weakness, [id number] chel - Hypokalemia chel - Deconditioning chel Forms: - Medication Reconciliation Form chel - Antibiotic Education chel - Prescription Opioid Use chel - Patient Portal Instructions chel - Leadership Thank You Letter [facility] Prescriptions: - Dulcolax (bisacodyl) 10 mg Rectal suppository - insert 1 suppository RECTAL route 2 times per day for 5 days; 10 suppository; [facility] Refills: 0, Product Selection Permitted - MagOx 400 mg (241.3 mg magnesium) Oral tablet - take 1 tablet ORAL route 2 times per day; 20 tablet; Refills: 0, Product chel Selection Permitted - Potassium Chloride 20 meq Oral Packet - take 1 packet ORAL route 2 times per day 1 packet in 6 (six) ounces of water or chel juice; Take after meal; 20 packet; Refills: 0, Product Selection Permitted - Lactulose 10 gram/15 mL Oral Solution - take 30 milliliters ORAL route once daily; 300 milliliter; Refills: 0, Product chel Selection Permitted NIH Stroke Scale - NIH Stroke Score Date: 08/26/2024 Time: 11:26 Total Score = 0 10. Dysarthria (speech clarity - read or repeat words) - 0(Normal) 11. Extinction and Inattention (visual/tactile/auditory/spatial/personal) - 0(No abnormality) 1a. Level of Consciousness (LOC) - 0(Alert) 1b. Level of Consciousness (LOC) (Month \T\ Age) - 0(Both) 1c. LOC Commands (Open \T\ Closes Eyes/Phlebotomy Coordinator) - 0(Both) 2. Best Gaze (Lateral Gaze Paresis) - 0(Normal) 3. Visual Field Loss - 0(No visual loss) 4. Facial Palsy - 0(Normal) 5a. Left Arm: Motor (10-second hold) - 0(No drift) 5b. Right Arm: Motor (10-second hold) - 0(No drift) 6a. Left Leg: Motor (5-second hold - always test supine) - 0(No drift) 6b. Right Leg: Motor (5-second hold - always test supine) - 0(No drift) 7. Limb Ataxia (finger/nose \T\ heel/mora - test with eyes open) - 0(Absent) 8. Sensory Loss (pinprick arms/legs/face) - 0(Normal) 9. Best Language: Aphasia (description/naming/reading) - 0(No aphasia) Initials: chel Signatures: Dispatcher [employer] EDClifton Tang MD MD cha Prokisch, Amanda, RN RN ap3 Diana Vega RN RN kc6 Corrections: (The following items were deleted from the chart) 09:33 09:33 BASIC METABOLIC PANEL+C.LAB.BRZ ordered. EDMS EDMS 09:33 09:33 CBC+H.LAB.BRZ ordered. EDMS EDMS 09:33 09:33 HEPATIC FUNCTION+C.LAB.BRZ ordered. EDMS EDMS 09:33 09:33 MAGNESIUM+C.LAB.BRZ ordered. EDMS EDMS 09:33 09:33 PROBNP+C.LAB.BRZ ordered. EDMS EDMS 09:33 09:33 PROTIME (+INR)+COAG.LAB.BRZ ordered. EDMS EDMS 09:33 09:33 Troponin High Sensitivity+C.LAB.BRZ ordered. EDMS EDMS 09:33 LIPASE+C.LAB.BRZ ordered. EDMS EDMS 09:33 Urinalysis+U.LAB.BRZ ordered. EDMS EDMS 09:33 Chest Single View+RAD.RAD.BRZ ordered. EDMS EDMS
[2024-08-26 13:10] VITALS: TEMP 99
[2024-08-26 13:13] VITALS: O2SAT 98
[2024-08-26 13:14] VITALS: BP 144/81
== END 2024-08-26 13:05 | disposition home or self-care (01) ==
LOC: ER 09:24
DX: K59.00 Constipation, unspecified (principal); E87.6 Hypokalemia; E83.42 Hypomagnesemia; R53.1 Weakness; E11.9 Type 2 diabetes mellitus without complications; I10 Essential (primary) hypertension
CPT/HCPCS: 96365; 96361; 93005; 85025; 81001; 80048; 36415; 83735; 85610; 80076; 84484; 83690; 83880; 71045; 99284; J3475; J7030

== ENCOUNTER 2025-04-15 05:54 | Day surgery (SDC) | payer OTHER ==
[2025-04-02 13:11] LABS: Absolute Lymphocytes (CBC) 1.5 K/uL (0.7-4.9); Hematocrit 45.2 % (39.6-49.0); Hemoglobin 15.6 g/dL (13.6-17.9); MCH 29.6 pg (27.0-35.0); MCHC 34.5 g/dL (32.0-36.0); MCV 85.8 fL (80-100); MPV 9.8 fL (7.6-11.3); Nucleated RBC Absolute Count 0.0 (0-0); Nucleated Red Blood Cells % 0.2 % (0-0); RBC Red Blood Cell Count 5.26 M/uL (4.33-5.43); White Blood Count 6.20 thou/uL (4.3-10.9)
[2025-04-02 13:12] LABS: Urine Culture Reflex Order REFLEXED; Urine Microscopic Reflex YN NO UMIC
[2025-04-02 13:25] LABS: PT Prothrombin Time 12.7 SECONDS (10-13.0); Protime INR 1.13
[2025-04-02 13:29] LABS: Anion Gap 6.1 mEq/L (5.0-15.0); BUN Blood Urea Nitrogen 19.0 mg/dL (7-18); Glucose Level 205.0 mg/dL (74-106); Potassium 3.1 mEq/L (3.5-5.1)
--- NOTE | 2025-04-02 13:47 | RAD REPORT ---
EXAMINATION: TWO VIEW CHEST XR CLINICAL INDICATION: Male, 74 years old. [facility] Pre-op pending spaceoar gel and fiducials. Hypertension TECHNIQUE: 2 view radiographs of the chest were performed. COMPARISON: 08/26/2024 FINDINGS: The lungs are well inflated and clear. No pneumothorax or sizable effusion. The heart is normal in si ze. Mediastinal contours are unremarkable. IMPRESSION: No acute or significant abnormalities.
[2025-04-15] MEDS: NA CHLORIDE 0.9% 1,000 ML ONE (06:30)
[2025-04-15] MEDS ORDERED: ONDANSETRON 4 MG/2 ML VIAL ONE (07:15)
[2025-04-15] MEDS ORDERED: FENTANYL CITR 100 MCG/2 ML ONE (07:15)
[2025-04-15] MEDS ORDERED: LIDOCAINE 1% MPF 5 ML VIAL ONE (07:16)
[2025-04-15] MEDS: CEFAZOLIN SODIUM 2 GM/VIAL ONE (07:49)
[2025-04-15] MEDS ORDERED: EPHEDRINE SULF 50 MG/ML VIAL ONE (07:50)
[2025-04-15] MEDS ORDERED: CODEINE 30MG/APAP 300MG TAB PO PRN (08:22)
--- NOTE | 2025-04-15 08:35 | P.OP ---
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 He elected to proceed with definitive treatment via radiation therapy. Procedure note: The patient was consented in the preoperative holding area before being transferred to the operative suite where general anesthesia was induced. He was given Ancef 2 g IV antimicrobial prophylaxis, and pneumoboots were provided for DVT prophylaxis. He was placed in the high lithotomy position, padded and secured to the table appropriately. His genitalia was elevated out of the perineal region using an Ioban drape and a transrectal ultrasound probe was placed via his anus into his rectum with the prostate visualized accordingly. A stepper device was used to hold the probe in position and situated such that I was able to visualize the entirety of the gland from the seminal vesicles at the base all the way to the apex and perineal region. Sagittal and axial visualization was performed. I started by targeting the patient's left Otf prostate in the mid gland anteriorly and laterally where I navigated a fiducial marker under ultrasound guidance via the perineum and into the prostate into the desired location. Once this was placed, I then targeted the contralateral right Otf prostate in the mid gland anterolaterally and similarly placed a second fiducial marker in that location. I then returned the stepper device back to the midline position and visualize the direct insertion of the SpaceOAR injection needle primed with saline placed via the skin of the perineum and down over a very prominent rectal hump entering the prerectal fat plane beyond the urogenital diaphragm. I was able to navigate the needle through that plane into the mid base region of the prostate where I aspirated and confirmed no blood or succus before injecting a bolus of saline which did distribute in the midline and symmetrically bilaterally. I confirmed the positioning of the needle then and axial section before the saline syringe and associating the SpaceOAR injection components. I then slowly injected the SpaceOAR components and observed the gel mixture to distribute bilaterally across the prostate from the base into the mid apical region of the prostate. There may have still been a slight area at the apex of the prostate that was not acutely during this injection given the significant size of his prostate and elongated transverse dimension. As a result, if during stimulation additional apical separation is required, a second bolus injection of SpaceOAR placed discretely in the apex may be required. I then remove the needle carefully and then the transrectal ultrasound probe. I cleansed away the Betadine and held pressure over the needle insertion sites through the perineum before taking the patient out of the lithotomy position. He was then awakened from general anesthesia before being transferred to a stretcher. He was then transferred to the recovery room in good condition. Complications: None Discharge disposition: Follow-up should be established typically about 6 months after completion of radiation therapy. Sooner follow-up may be planned if bothersome LUTS a ssociated with the radiation and his enlarged prostate.
[2025-04-15 13:00] VITALS: TEMP 97.9; O2SAT 99
[2025-04-15 13:03] VITALS: BP 141/70
== END 2025-04-15 09:53 | disposition home or self-care (01) ==
LOC: OR 05:54
PROVIDERS: ATTEND Urology
PROC: 0VH43YZ Insertion of Other Device into Prostate and Seminal Vesicles, Percutaneous Approach (ICD-10-PCS; principal; 2025-04-15 07:30)
DX: C61 Malignant neoplasm of prostate (principal); N40.1 Benign prostatic hyperplasia with lower urinary tract symptoms
CPT/HCPCS: 93005; 87088; 85025; 87086; 80048; 36415; 85610; 82947 ×2; 81003; 71046; 55876; J2704; J2003; J3010; J1100; J2405; J7030; C1889

== ENCOUNTER 2025-06-10 07:18 | Day surgery (SDC) | payer OTHER ==
[2025-06-03 13:38] LABS: Absolute Lymphocytes (CBC) 1.5 K/uL (0.7-4.9); Hematocrit 44.7 % (39.6-49.0); Hemoglobin 15.1 g/dL (13.6-17.9); MCH 29.0 pg (27.0-35.0); MCHC 33.7 g/dL (32.0-36.0); MCV 86.2 fL (80-100); MPV 10.1 fL (7.6-11.3); Nucleated RBC Absolute Count 0.0 (0-0); Nucleated Red Blood Cells % 0.1 % (0-0); RBC Red Blood Cell Count 5.19 M/uL (4.33-5.43); White Blood Count 5.30 thou/uL (4.3-10.9)
[2025-06-03 13:44] LABS: PT Prothrombin Time 13.2 SECONDS (10-13.0); Protime INR 1.17
[2025-06-03 13:45] LABS: Urine Culture Reflex Order REFLEXED; Urine Microscopic Reflex YN NO UMIC
[2025-06-03 13:53] LABS: Anion Gap 6.1 mEq/L (5.0-15.0); BUN Blood Urea Nitrogen 15.0 mg/dL (7-18); Glucose Level 280.0 mg/dL (74-106); Potassium 3.1 mEq/L (3.5-5.1)
[2025-06-10] MEDS ORDERED: ONDANSETRON 4 MG/2 ML VIAL ONE (07:34)
[2025-06-10] MEDS ORDERED: FENTANYL CITR 100 MCG/2 ML ONE (07:35)
[2025-06-10] MEDS ORDERED: MIDAZOLAM HCL 2 MG/2 ML INJ ONE (07:35)
[2025-06-10] MEDS ORDERED: LIDOCAINE 1% MPF 5 ML VIAL ONE (07:49)
[2025-06-10] MEDS: NA CHLORIDE 0.9% 1,000 ML ONE (07:50)
[2025-06-10] MEDS: CEFAZOLIN SODIUM 2 GM/VIAL ONE (09:13)
[2025-06-10 10:14] VITALS: TEMP 97
--- NOTE | 2025-06-10 10:24 | P.OP ---
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 He underwent SpaceOAR to decrease the risk of radiation proctitis, but the intermediate largely occupied the mid base of the prostate, failing to separate the apical aspect of the prostate ideally. As a result, the radiation oncologist requested additional apical lift, and Halie gel was selected. Procedure note: The patient was consented in the preoperative holding area before being transferred to the operative suite where general anesthesia was induced. He was given Ancef 2 g IV antimicrobial prophylaxis, and pneumoboots were provided for DVT prophylaxis. He was placed in the high lithotomy position, padded and secured to the table appropriately. His genitalia was elevated out of the perineal region using an Ioban drape, and the transrectal ultrasound probe was placed via his anus into his rectum with ease and under ultrasound visualization. A stepper device was used to hold the probe in position, and the prostate was visualized from the seminal vesicles at the base all the way through the perineal region beyond the apex. Visualization was performed in sagittal and axial dimensions. The prior placed SpaceOAR gel was visible but only occupying the mid base region of the prostate with elevation in that region. Unfortunately, there was not significant apical mid gland lift. As a result, the perineum was prepped with Betadine and draped in standard fashion, and I then utilized the SpaceOAR injection needle primed with the Barrigel solution, placed via the skin of the perineum and through the urogenital diaphragm over the rectal hump entering Dennonvillier's space. I advanced the needle to the point just a couple of millimeters before the site of separation created by the prior placed SpaceOAR gel. I then injected a bolus of the Barrigel in the midline and as it began to separate the rectum from the peripheral zone of the prostate, I backed the needle up continuing to deliver the gel so that that separation extended all the way beyond the apex of the prostate but before the urogenital diaphragm. I then surveyed to the patient's left lateral aspect of the prostate and identified an area of needing separation that was very lateral, and I injected a second syringe of the Barrigel the prostate from the rectum in that location on the left. Using the same needle insertion site, I then angled the ultrasound probe in the sagittal dimension to the right lateral aspect of the prostate beyond where the boluses had previously been placed, and I inserted the needle into that area of approximation and again injected a third syringe and final bolus of the Barrigel on the patient's right lateral apical mid gland, creating the desired separation. Survey of the separation created from the seminal vesicles through the apex of the prostate was then assessed in axial dimension and was determined to be excellent. As a result, I removed the needle, holding pressure over the site of insertion, and then remove the transrectal ultrasound probe. We then cleansed away the Betadine from his perineal region and removed the Ioban drape. The patient was then taken out of the lithotomy position, awakened from general anesthesia, transferred to a stretcher, and then transferred to the recovery room in good condition. Complications: None Discharge disposition: He may begin radiation therapy simulation, and I counseled him to notify the radiation oncologist that he had it completed today so that that could begin. Subsequent follow-up should be established in about 6 months after completion of radiation or sooner if the patient has issues of urologic nature that arise associated with the radiation.
[2025-06-10 10:30] VITALS: BP 128/70; O2SAT 97
== END 2025-06-10 10:48 | disposition home or self-care (01) ==
LOC: OR 07:18
PROVIDERS: ATTEND Urology
PROC: 0VH43YZ Insertion of Other Device into Prostate and Seminal Vesicles, Percutaneous Approach (ICD-10-PCS; principal; 2025-06-10 09:00)
DX: C61 Malignant neoplasm of prostate (principal); I10 Essential (primary) hypertension; E11.9 Type 2 diabetes mellitus without complications; E78.00 Pure hypercholesterolemia, unspecified; K21.9 Gastro-esophageal reflux disease without esophagitis
CPT/HCPCS: 87088; 85025; 87086; 80048; 36415; 85610; 82947 ×2; 81003; 55874; J2704; J3010; J2405; J7030; J2003; J2250